=== PATIENT | male | born 1965 | race Caucasian/White ===

== ENCOUNTER 2022-06-19 14:21 | Outpatient (CLI) | payer BC, SELFPAY ==
--- NOTE | ~2022-06-19 | MR_ITS ---
EXAMINATION: MR brain/brain stem wo/w con DATE: 06/19/2022 15:01 INDICATION: Diplopia. Left trochlea nerve palsy. TECHNIQUE: Magnetic resonance imaging (MRI) of the brain and brainstem was performed without and with 18 mL MultiHance intravenous contrast. COMPARISON: Head CT 03/31/2018 FINDINGS: There is no intracranial hemorrhage, acute infarction, or abnormal intracranial mass lesion . The ventricles are normal in size. The orbits are normal. There is mild mucosal thickening in right maxillary sinus. The mastoid air cells are normal. IMPRESSION: 1. Normal brain. Reviewed, dictated and finalized at location A. IMPRESSION: 1. Normal brain.
== END 2022-06-19 14:22 ==
LOC: MICIMG 14:22
PROVIDERS: PCP Student in an Organized Health Care Education/Training Program; Visit Provider Student in an Organized Health Care Education/Training Program
DX: H53.2 Diplopia (principal); H49.12 Fourth [trochlear] nerve palsy, left eye
CPT/HCPCS: 70553; A9577

== ENCOUNTER 2024-11-03 09:25 | Outpatient (CLI) | payer BC, SELFPAY ==
--- OUTSIDE RECORDS SUMMARY | 2024-11-03 10:18 | XMS_ITS | Clinical Summary ---
Author Organization [facility] Address [facility] [place] [address] Care Team Providers Care Hand Stemmer Name Role Phone ToñitonurysDirk sanabria Primary Care Provider + Allergies No known active allergies Medications Glucose Blood test stripIndication s:Type 2 diabetes mellitus without complication, without long-term current use of insulin (CMS/HCC HHS/HCC) Check blood sugar once daily in AM when fasting 100 strip 11 4 Active Blood Glucose Monitoring Suppl (ONE TOUCH ULTRA 2) w/Device KitIndications: Type 2 diabetes mellitus without complication, without long-term current use of insulin (CMS/HCC HHS/HCC) Check blood sugar once daily in AM when fasting 1 kit 4 Active Lancets (ONETOUCH ULTRASOFT) lancetsIndicati ons:Type 2 diabetes mellitus without complication, without long-term current use of insulin (CMS/HCC HHS/HCC) Check blood sugar once daily in AM when fasting 1 each 11 4 Active atorvastatin (LIPITOR) 80 MG tabletIndicatio ns:Hyperlipidem ia associated with type 2 diabetes mellitus (CMS/HCC HHS/HCC) Take 1 tablet (80 mg total) by mouth nightly at bedtime. 90 tablet 3 5 Active atorvastatin (LIPITOR) 80 MG tabletIndicatio ns:Hyperlipidem ia associated with type 2 diabetes mellitus (CMS/HCC HHS/HCC) Take 1 tablet (80 mg total) by mouth nightly at bedtime. 90 tablet 3 4 10/15/19 25 Discontinu ed(Reorder ) Active Problems Problem Noted Date Diagnosed Date Type 2 diabetes mellitus wit hout complication, without long-term current use of insulin ([facility]/HCC [facility]) 03/23/2024 Elevated hemoglobin A1c 05/23/2020 Allergic rhinitis, unspecifi ed seasonality, unspecified trigger 05/23/2020 Hyperlipidemia GERD (gastroesophageal reflux disease) Resolved Problems Problem Noted Date Diagnosed Date Resolved Date Left trochlear nerve palsy 11/23/2022 0 11/08/2023 Encounters Date Type Department Care Team Description 10/15/2024 Telephone [facility] Family & Internal Medicine [address] [phone] Dirk Worthington, DO Refill Request 09/14/2024 Scan [facility] SRVCS Scanned, [facility] Image (SCAN) from Last 3 Months Immunizations Name Administration Dates Next Due Hepatitis A (Havrix 1440 El.U) 07/23/2019 Hepatitis B(Engerix B Adult) 01/19/2020,08/21/20 19,07/23/2019 Influenza Adult (Generic) 08/31/2022 MODERNA COVID-19 (12+) MRNA, LNP-S, PF, 100 MCG/ 0.5 ML DOSE 11/22/2020,10/25/2020 Tdap (Generic) 10/06/2022,02/08/2016 Family History Medical History Relation Comments COPD Father Cancer Father Heart Disease Father Diabetes Mother Heart Disease Mother Asthma Son Relation Status Comments Father Mother Son Social History Tobacco Use Types Packs/Day Years Used Date Smoking Tobacco: Never Smokeless Tobacco: Never Comments:na Alcohol Use Standard Drinks/Week Comments Yes 6.7 (1 standard drink = 0.6 oz p ure alcohol) Occasional PHQ-2 Answer Date Recorded Patient Health Questionnaire-2 Score 0 11/08/2023 Sex and Gender Information Value Date Recorded Sex Assigned at Not on file Legal Sex Male 3:53 PM INVOICE CONTROL CLERK Gender Identity Male 10/05/2021 8:43 AM INVOICE CONTROL CLERK Sexual Orientation Straight 12/01/2021 11 :48 AM INVOICE CONTROL CLERK Last Filed Vital Signs Vital Sign Reading Time Taken Comments Blood Pressure 104/68 07/06/2024 7:09 AM CDT Pulse 73 07/06/2024 7:09 AM CDT Temperature 36.7 C (98.1 F) 07/06/2024 7:09 AM CDT Respiratory Rate 16 07/06/2024 7:09 AM CDT Oxygen Saturation 97% 07/06/2024 7:09 AM CDT Inhaled Oxygen Concentration - - Weight 91.6 kg (202 lb) 07/06/2024 7:09 AM CDT Height 170.2 cm (5' 7 ) 07/06/2024 7:09 AM CDT Body Mass Index 31.64 07/06/2024 7:09 AM CDT Plan of Treatment Upcoming Encounters Date Type Department Care Team (Late st Contact Info) Description 01/04/2025 7:20 AM CDT Laboratory Only [facility] Family & Internal [address] [phone] Dirk Worthington, [address] [place] [id number] 01/11/2025 7:00 AM CDT Office Visit [facility] Family [facility] Internal [address] [phone] Dirk Worthington, DO [address] [place] [address] Health Maintenance Due Date Last Done Comments Kidney Health Evaluation 1966 Diabetes: Retinopathy Eye Exam 1984 Annual Physical 10/06/2019 10/06/2018 PHQ-2 (Physician [place]) 09/23/2024 11/08/2023 Lipid Panel 11/08/2024 11/08/2023, 0910/2021, 05/28/2020, Additional history exists PHQ-2 (Physician [place]) 11/08/2024 11/08/2023 Hemoglobin A1C 01/04/2025 07/06/2024, 0709/2023, 11/08/2023, Additional history exists Pneumococcal Vaccine: Pediatrics (0 to 5 Years) and At-Risk Patients (6 to 64 Years) (1 of 2 - PCV) 04/06/2025 Postponed from 1972 (Patient Refused) COVID-19 Vaccine (3 - season) 2025 11/22/2020, 10/25/2020 Postponed from 05/24/2024 (Patient Refused) Influenza Adult (#1) 2025 08/31/2022 Postpon ed from 06/23/2024 (Patient Refused) Zoster Vaccines (1 of 2) 10/24/2026 Pos tponed from 2016 (Awaiting Documentation) Colorectal Cancer Screening FIT-DNA (3 Years) 08/03/2027 08/03/2024 DTaP, Tdap and Td Vaccines (3 - Td or Tdap) 10/06/2032 10/06/2022, 02/08/2016 Hepatitis B Vaccines Completed 01/19/2020, 08/21/2019, 07/23/2019 Hepatitis C Completed 05/25/2022 Meningococcal B Vaccine Aged Out No l onger eligible based on patient's age to complete this topic Meningococcal Vaccine Aged Out No kateryna silas eligible based on patient's age to complete this topic RSV Immunizations Under 20 Months Aged Out No longer eligible based on patient's age to complete this topic Procedures Procedure Name Priority Date/Time Associated Diagnosis Comments IMAGE GENERIC 09/14/2024 COLOGUARD (EXACT SCIENCE) Routine 08/03/2024 9:36 AM INVOICE CONTROL CLERK Screening for malignant neoplasm of colon HEMOGLOBIN, GLYCOSYLATED Routine 07/06/2024 Type 2 diabetes mellitus without complication, without long-term current use of insulin ([facility]CC [facility]/HCC) LIPID PANEL Routine 11/08/2023 7:55 AM INVOICE CONTROL CLERK Annual physical exam Screening for lipid disorders Screening for endocrine, metabolic and immunity disorder Screening for prostate cancer HEPATITIS C ANTIBODY Routine 05/25/2022 1:51 PM CDT Screening for lipid disorders Screening for endocrine, metabolic and immunity disorder Screening for prostate cancer Need for hepatitis C screening test Annual physical exam from Last 3 Months or Most Recently Relevant to Health Maintenance Results * IMAGE GENERIC (09/14/2024) Anatomical Region Laterality Modality Other 09/14/2024 us [facility] Scanned SCANNING Final Resu lt * COLOGUARD (EXACT SCIENCE) (08/03/2024 9:36 AM INVOICE CONTROL CLERK) COLOGUARD RESULT Negative Negative [facility] [employer] (CLIA #:[id number]) Comment: NEGATIVE TEST RESULT. A negative Cologuard result indicates a low likelihood that a colorectal cancer (CRC) or advanced adenoma (adenomatous polyps with more advanced pre-malignant features) is present. The chance that a person with a negative Cologuard test has a colorectal cancer is less than 1 in 1500 (negative predictive value >99.9%) or has an advanced adenoma is less than 5.3% (negative predictive value 94.7%). These data are based on a prospective cross-sectional study of 10,000 individuals at average risk for colorectal cancer who were screened with both Cologuard and colonoscopy. (Elyssa Chaparro et al, N Engl J Med 2014;370(14):7432-3637) The normal value (reference range) for this assay is negative. COLOGUARD RE-SCREENING RECOMMENDATION: Periodic colorectal cancer screening is an important part of preventive healthcare for asymptomatic individuals at average risk for colorectal cancer. Following a negative Cologuard result, the [place] [employer] and U.S. Multi-Society Task Force screening guidelines recommend a Cologuard re-screening interval of 3 years. References: [place] [employer] Guideline for Colorectal Cancer Screening: https://www.cancer.org/cancer/ruala-zhpuzr-omepup/nvpivimqo-lanjpktco-kcmulvq/ac s-rec ommendations.html.; Romel MOREIRA, Ronny FRAZIER, Neil MillerK, Colorectal Cancer Screening: Recommendations for Physicians and Patients from the U.S. Multi-Society Task Force on Colorectal Cancer Screening , Am J Gastroenterology 2017; 112:7749-1259. TEST DESCRIPTION: Composite algorithmic analysis of stool DNA-biomarkers with hemoglobin immunoassay. Quantitative values of individual biomarkers are not reportable and are not associated with individual biomarker result reference ranges. Cologuard is intended for colorectal cancer screening of adults of either sex, 45 years or older, who are at average-risk for colorectal cancer (CRC). Cologuard has been approved for use by the U.S. FDA. The performance of Cologuard was established in a cross sectional study of average-risk adults aged 50-84. Cologuard performance in patients ages 45 to 49 years was estimated by sub-group analysis of near-age groups. Colonoscopies performed for a positive result may find as the most clinically significant lesion: colorectal cancer [4.0%], advanced adenoma (including sessile serrated polyps greater than or equal to 1cm diameter) [20%] or non- advanced adenoma [31%]; or no colorectal neoplasia [45%]. These estimates are derived from a prospective cross-sectional screening study of 10,000 individuals at average risk for colorectal cancer who were screened with both Cologuard and colonoscopy. (Elyssa Roberto. et al, N Engl J Med 2014;370(14):0715-3733.) Cologuard may produce a false negative or false positive result (no colorectal cancer or precancerous polyp present at colonoscopy follow up). A negative Cologuard test result does not guarantee the absence of CRC or advanced adenoma (pre-cancer). The current Cologuard screening interval is every 3 years. ([place] [employer] and U.S. Multi-Society Task Force). Cologuard performance data in a 10,000 patient pivotal study using colonoscopy as the reference method can be accessed at the following location: www.PsychSignal/results. Additional description of the Cologuard test process, warnings and precautions can be found at www.cologuard.com. STOOL STOOL SPECIMEN / Unknown 08/03/2024 9:36 AM INVOICE CONTROL CLERK 08/04/2024 9:52 AM INVOICE CONTROL CLERK us Dirk Worthington DO BODY FLUIDS AND STOOLS O RDERABLES Final Result [employer] ([employer] [facility]) [address] [place] [address], [employer] (CLIA #:[id number]) [address] [place] [address] * HEMOGLOBIN, GLYCOSYLATED (07/06/2024) HGB A1C 6.1 % [facility] 07/06/2024 Dirk Worthington DO LABORATORY Final Re sult Performing Organization Address City/[facility]/ZIP Co de Phone Number [facility] [address] [place] [address], [place] * LIPID PANEL (11/08/2023 7:55 AM INVOICE CONTROL CLERK) CHOLESTEROL 161 <200 MG/DL 11/08/2023 4:40 PM INVOICE CONTROL CLERK [facility] TRIGLYCERIDES 106 <150 MG/DL 11/08/2023 4:40 PM INVOICE CONTROL CLERK [facility] HDL 45 >40 MG/DL 11/08/2023 4:40 PM INVOICE CONTROL CLERK [facility] LDL-C 95 <100 MG/DL 11/08/2023 4:40 PM INVOICE CONTROL CLERK [facility] VLDL CALCULATION 21 5 - 28 MG/DL 11/08/2023 4:40 PM INVOICE CONTROL CLERK [facility] CHOL/HDL RATIO 3.6 0.0 - 4.0 11/08/2023 4:40 PM INVOICE CONTROL CLERK [facility] LDL/HDL 2.1 0.41 - 2.13 11/08/2023 4:40 PM INVOICE CONTROL CLERK [facility] NON HDL CHOLESTEROL 116 <140 MG/DL 11/08/2023 4:40 PM INVOICE CONTROL CLERK [facility] 11/08/2023 7:55 AM INVOICE CONTROL CLERK Dirk Worthington DO LABORATORY Final Re sult [facility] [address] [place] [address], [place] [phone] * HEPATITIS C AB ([facility] ONLY) (05/25/2022 1:51 PM CDT) HEPATITIS C AB NON-REACTI VE NON-REACT SANJEEV 05/29/2022 11:27 AM CDT [facility] Comment: ANTIBODIES TO HCV NOT DETECTED. DOES NOT EXCLUDE THE POSSIBILITY OF EXPOSURE TO HCV. 05/25/2022 1:51 PM CDT Dirk Worthington DO LABORATORY Final Re sult [facility] [address] [place] [address], [id number] from Last 3 Months or Most Recently Relevant to Health Maintenance Insurance [facility] Care Teams Hand Stemmer Relationship Specialty Start Date End Date Dirk Worthington DO [address] [place], [place] [id number] PCP - General FAMILY PRACTICE 09/25/18
--- OUTSIDE RECORDS SUMMARY | 2024-11-03 10:18 | XMS_ITS | Patient Health Summary ---
Author Organization [facility] Address [address] [place] [address] Care Team Providers Care Barnworker Groom Name Role Phone Unavailable Primary Care Provider Unavailabl e Note from [facility],non-owned Affiliates and Associated Physician Practices is amultiple site organization consisting of ambulatory clinics and hospital sitesin [place], [place] and [place]. This disclosure is being madepursuant to the Care Everywhere program and may not contain all information available regarding this patient. Last updated 18.[facility] Allergies No known active allergies Medications * Be aware that medications may not be up to date on this document. Alwaysverify current medications with the patient. * atorvastatin (LIPITOR) 10 MG tablet Take 10 mg by mouth at bedtime * Cetirizine HCl (ZYRTEC ALLERGY PO) * atorvastatin (LIPITOR) 80 MG tablet(Started 01/18/2020) * benzonatate (TESSALON) 200 MG capsule(Started 04/09/2021) Take 1 (one) capsule by mouth 3 times daily as needed for Cough Active Problems No known active problems Social History Tobacco Use Types Packs/Day Years Used Date Smoking Tobacco: Never Smokeless Tobacco: Never Alcohol Use Standard Drinks/Week Comments Never 0 (1 standard drink = 0.6 oz pur e alcohol) AUDIT-C Answer Date Recorded Q1: How often do you have a drink containing alc ohol? Never 12/18/2020 Average Number of Drinks Not on file 021 Frequency of Binge Drinking Not on file 11/22 Sex and Gender Information Value Date Recorded Sex Assigned at Not on file Gender Identity Not on file Sexual Orientation Not on file Last Filed Vital Signs Vital Sign Reading Time Taken Comments Blood Pressure 140/84 04/09/2021 11:20 AM CDT Pulse 64 04/09/2021 11:20 AM CDT Temperature 36.7 C (98 F) 04/09/2021 11:20 AM CDT Respiratory Rate 20 04/09/2021 11:20 AM CDT Oxygen Saturation 97% 04/09/2021 11:20 AM CDT Inhaled Oxygen Concentration - - Weight 95.3 kg (210 lb) 04/09/2021 11:20 AM CDT Height 170.2 cm (5' 7 ) 04/09/2021 11:20 AM CDT Body Mass Index 32.89 04/09/2021 11:20 AM CDT
--- OUTSIDE RECORDS SUMMARY | 2024-11-03 10:18 | XMS_ITS | Clinical Summary ---
Author Organization [facility] Address [address] [place] [address] Phone Care Team Providers Care Clinical Safety Manager Name Role Phone Toñitostephanie Dirk Zach FIERRO Primary Care Provider + Allergies No known active allergies Medications atorvastatin (LIPITOR) 10 mg tablet Take 20 mg by mouth daily at bedtime. Active Active Problems Problem Noted Date Diagnosed Date Left trochlear nerve palsy 11/23/2022 Binocular vision disorder with diplopia 11/24/19 23 Family History Medical History Relation Name Comments Glaucoma Father Macular Degen Father Diabetes Mother Strabismus Neg Hx Relation Name Status Comments Father Mother Social History Tobacco Use Types Packs/Day Years Used Date Smoking Tobacco: Never Smokeless Tobacco: Never Tobacco Cessation:Counseling Given: Not Answered Alcohol Use Standard Drinks/Week Comments Yes 1 (1 standard drink = 0.6 oz pur e alcohol) Feeling Safe Answer Date Recorded Are you in a relationship wi th someone who hurts you emotionally and/or physically? Unable to obtain 05/31/2023 Sex and Gender Information Value Date Recorded Sex Assigned at Not on file Legal Sex Male 11:09 PM CDT Gender Identity Not on file Sexual Orientation Not on file Last Filed Vital Signs Vital Sign Reading Time Taken Comments Blood Pressure 116/74 05/31/2023 1:28 PM CDT Pulse 62 05/31/2023 1:28 PM CDT Temperature 36.1 C (97 F) 05/31/2023 1:28 PM CDT Respiratory Rate 18 05/31/2023 1:28 PM CDT Oxygen Saturation 96% 05/31/2023 1:28 PM CDT Inhaled Oxygen Concentration - - Weight 95.2 kg (209 lb 12.8 oz) 05/31/2023 8:52 AM CDT Height 170.2 cm (5' 7 ) 05/31/2023 8:52 AM CDT Body Mass Index 32.86 05/31/2023 8:52 AM CDT Plan of Treatment Health Maintenance Due Date Last Done Comments HEPATITIS B VACCINES (1 of 3 - 19+ 3-dose series) 1985 01/19/2020, 08/21/2019, 07/23/2019 COLORECTAL SCREENING 2011 Colorectal Cancer Screening 2011 FIT-DNA Q 3 years 2011 FIT/FOBT Q 1 year 2011 Flex Sig/CT Colonography Q 5 years 2011 ZOSTER VACCINE (1 of 2) 2016 INFLUENZA VACCINE (#1) 2024 COVID-19 Vaccine (2023-2 5 season) 2024 11/22/2020, 10/25/2020 DTAP/TDAP/TD VACCINES (2 - T d or Tdap) 02/07/2026 02/08/2016 PNEUMOCOCCAL VACCINE 0-64 YEARS Aged Out No longer eligible b ased on patient's age to complete this topic Insurance [employer] BLUE PREFERRED Advance Directives For more information, please contact: [phone] * Full Code (Latest Code Status on File) Date Activated Date Inactivated Comments 05/31/2023 9:00 AM 05/31/2023 3:49 PM Care Teams Clinical Safety Manager Relationship Specialty Start Date End Date Dirk Worthington [address] [place] [phone] PCP - General Family Practice 11/15/22
--- OUTSIDE RECORDS SUMMARY | 2024-11-03 10:18 | XMS_ITS | Referral Summary ---
Author Organization [facility] Address [address] [place] [address] Care Team Providers Care Compliance Engineer Name Role Phone Unavailable Primary Care Provider Unavailabl e Source Comments [facility],non-owned Affiliates and Associated Physician Practices is amultiple site organization consisting of ambulatory clinics and hospital sitesin [place], [place], [place] and [place]. This disclosure is being madepursuant to the Care Everywhere program and may not contain all information available regarding this patient. Last updated 18.[facility] [employer] Allergies No known active allergies Medications * Be aware that medications may not be up to date on this document. Alwaysverify current medications with the patient. Medication Sig Dispensed Refills Start Date End Date Status atorvastatin (LIPITOR) 10 MG tablet Take 10 mg by mouth at bedtime Active Cetirizine HCl (ZYRTEC ALLERGY PO) Activ e atorvastatin (LIPITOR) 80 MG tablet 01/18/2020 Active benzonatate (TESSALON) 200 MG capsule Take 1 (one) capsule by mouth 3 times daily as needed for Cough 30 capsule 04/09/2021 Active Active Problems No known active problems Social [...] Mass Index 32.89 04/09/2021 11:20 AM CDT Plan of Treatment Not on file
--- OUTSIDE RECORDS SUMMARY | 2024-11-03 10:18 | XMS_ITS | Clinical Summary ---
Author Organization [facility] Address [address] [facility] [place] [address] Care Team Providers Care Syrup Mixer Helper Name Role Phone Unavailable Primary Care Provider Unavailabl e Source Comments [facility],non-owned Affiliates and Associated Physician Practices is amultiple site organization consisting of ambulatory clinics and hospital sitesin [place], [place], [place] and [place]. This disclosure is being madepursuant to the Care Everywhere program and may not contain all information available regarding this patient. Last updated 18.[facility] Allergies No known active allergies Medications * [...] 04/09/2021 11:20 AM CDT Plan of Treatment Health Maintenance Due Date Last Done Comments COLOGUARD (AGES 45-75) - COL ON CA SCREENING 1966 COLON MONITORING 1966 COLONOSCOPY - COLON CA SCREENING 1966 CT COLONOGRAPHY - COLON CA SCREENING 1966 Colorectal Cancer Screening 1966 FIT - COLON CA SCREENING 1966 FLEX SIG - COLON CA SCREENING 1966 HIV SCREENING 1981 HEPATITIS C SCREENING 09/26/1984 DTAP/TDAP/TD VACCINES (1 - Tdap) 1985 HEPATITIS B VACCINE (1 of 3 - 19+ 3-dose series) 1985 PNEUMOCOCCAL VACCINE 50+ (1 of 1 - PCV) 2016 ZOSTER VACCINE (1 of 2) 2016 SCREENING FOR DIABETES 12/18/2020 COVID-19 VACCINE (3 - 2023-2 5 season) 2024 11/22/2020, 10/25/2020 INFLUENZA VACCINE (#1) 2024 DEPRESSION SCREENING 09/23/2024 HIB VACCINE Aged Out No longer eligi ble based on patient's age to complete this topic HPV VACCINE Aged Out No longer eligi ble based on patient's age to complete this topic MENINGOCOCCAL (Group B) VACCINE Aged Out No longer eligible b ased on patient's age to complete this topic MENINGOCOCCAL VACCINE Aged Out No kateryna silas eligible based on patient's age to complete this topic PNEUMOCOCCAL VACCINE Aged Out No long er eligible based on patient's age to complete this topic
--- OUTSIDE RECORDS SUMMARY | 2024-11-03 10:18 | XMS_ITS | Data Portability ---
Author Organization [employer], [facility] Address [address] [address] Assessment No assessment recorded. Plan of Treatment Reminders Order Date Submit Date Provider Last Modified By Organization Details Last Modified Time Details Appointments None recorded. Lab PSA, serum or plasma 2019 ORITZ Not available 0 17:37:30 CBC w/ auto diff 2019 ORTIZ Not available 0 17:37:29 vitamin D, 25-hydroxy, total, serum 2019 020 ORTIZ Not available 0 17:37:30 testosteron e, free, serum 2019 Not available 0 11:03:02 testosteron e, total, serum 2019 020 Not available 0 11:03:02 Referral None recorded. Procedures None recorded. Surgeries None recorded. Imaging US, lower extremity, nonvascular 2019 020 Not available 0 11:32:05 XR, knee 2019 020 Not available 0 11:03:02 Medication Orders cephalexin 500 mg capsule 2019 020 Not available 0 11:03:02 diazepam 10 mg tablet 2019 020 Not available 0 11:03:02 Patient TargetsNo targets recorded. Patient Instructions Encounter Date Encounter Id Patient Instructions Last Modified By Organization Details Last Modified Time 04/13/2020 [id number] knee arthritis: care instructions Not available 04/13/2020 11:32:05 knee pain or injury: care instructions Not available 04/13/2020 11:03:02 After review of radiographic and examination findings, we discussed treatment options available. These included corticosteroid injection,bracing, observation, surgical referral, physical therapy, pain management, and/or stem cell treatment. The patient is definitely interested in non-surgical alternatives. If they choose to undergo stem cell biologic treatment, it is understood that it is considered investigational and off label use of the product by FDA, that it is not a covered benefit by insurance, and that there is no guarantee of symptom improvement. We reviewed the stem cell treatment and depth. Information packet was given to and reviewed with the patient. All questions were answered related to the procedure, post procedure expectations, and cost associated with treatment. We also discussed that sometimes more than one biologic treatment is required to attain desired efficacy. If opting to undergo biologic treatment, an order was given for laboratory studies to be completed. They will call our office if they desire to schedule an appointment for treatment or review any of the other treatment options discussed. Patient will also RTC or call for any worsening, questions or concerns prn. Not available 04/13/2020 11:30:45 Reason for Referral None Reported. Results Created Date Observation Date Name Description Value Unit Range Abnormal Flag Note LastModifiedBy Organization Detail LastModifiedTime 04/30/2005/04/2020 CBC w/ auto diff white blood cell count 6.0 thous and/u L 3.8-10 .8 normal Not Available [employer] [facility] [address] [place], [address], 05/04/2020 17:37:29 04/30/2005/04/2020 CBC w/ auto diff red blood cell count 5.14 ayo on/uL 4.20-5 .80 normal Not Available [employer] [facility] [address] [place], [address], 05/04/2020 17:37:29 04/30/2005/04/2020 CBC w/ auto diff hemoglobin 15.6 g/dL 13.2-1 7.1 normal Not Available [address], [address], 05/04/2020 17:37:29 04/30/2005/04/2020 CBC w/ auto diff hematocrit 46.6 % 38.5-5 0.0 normal Not Available [address], [address], 05/04/2020 17:37:29 04/30/2005/04/2020 CBC w/ auto diff MCV 90.7 fL 80.0-1 00.0 normal Not Available [address], [address], 05/04/2020 17:37:29 04/30/2005/04/2020 CBC w/ auto diff MCH 30.4 pg 27.0-3 3.0 normal Not Available [address], [address], 05/04/2020 17:37:29 04/30/2005/04/2020 CBC w/ auto diff MCHC 33.5 g/dL 32.0-3 6.0 normal Not Available [address], [address], 05/04/2020 17:37:29 04/30/2005/04/2020 CBC w/ auto diff RDW 12.1 % 11.0-1 5.0 normal Not Available [address], [address], 05/04/2020 17:37:29 04/30/2005/04/2020 CBC w/ auto diff platelet count 248 thous and/u L 140-40 0 normal Not Available [address], [address], 05/04/2020 17:37:29 04/30/2005/04/2020 CBC w/ auto diff MPV 11.3 fL 7.5-12 .5 normal Not Available [address], [address], 05/04/2020 17:37:29 04/30/20 20 05/04/2020 CBC w/ auto diff absolute neutrophils 3492 cells /uL 1500-7 800 normal Not Available [address], [address], 05/04/2020 17:37:29 04/30/20 20 05/04/2020 CBC w/ auto diff absolute lymphocytes 1764 cells /uL 850-39 00 normal Not Available [address], [address], 05/04/2020 17:37:29 04/30/20 20 05/04/2020 CBC w/ auto diff absolute monocytes 564 cells /uL 200-95 0 normal Not Available [address], [address], 05/04/2020 17:37:29 04/30/20 20 05/04/2020 CBC w/ auto diff absolute eosinophils 132 cells /uL 15-500 normal Not Available [address], [address], 05/04/2020 17:37:29 04/30/20 20 05/04/2020 CBC w/ auto diff absolute basophils 48 cells /uL 0-200 normal Not Available [address], [address], 05/04/2020 17:37:29 04/30/20 20 05/04/2020 CBC w/ auto diff neutrophils 58.2 % normal Not Available [address], [address], 05/04/2020 17:37:29 04/30/20 20 05/04/2020 CBC w/ auto diff lymphocytes 29.4 % normal Not Available [address] [place], [address], 05/04/2020 17:37:29 04/30/20 20 05/04/2020 CBC w/ auto diff monocytes 9.4 % normal Not Available [facility] [address] [place], [address], 05/04/2020 17:37:29 04/30/20 20 05/04/2020 CBC w/ auto diff eosinophils 2.2 % normal Not Available [facility] [place] [address] [place], [address], 05/04/2020 17:37:29 04/30/20 20 05/04/2020 CBC w/ auto diff basophils 0.8 % normal Not Available [facility] [place] [address] [place], [address], 05/04/2020 17:37:29 04/30/20 20 05/04/2020 PSA, serum or plasm a PSA, total 1.0 NG/mL < or = 4.0 normal The total PSA value from this assay syste m is stand ardiz ed again st the WHO stand jennifer. The test resul t will be appro ximat mark 20% lower when asher red to the equim olar- stand ardiz ed total PSA ([facility] man Coul[facility] er). Asher rison of seria l PSA resul ts shoul d be inter prete d with this fact in mind. This test was perfo rmed using the [employer] chemi lumin escen t metho d. Value s obtai deborah from diffe rent assay metho ds canno t be used inter dela cruz eably . PSA level s, regar dless of value , shoul d not be inter prete d as absol jayjay evide nce of the prese nce or absen ce of disea se. Not Available [facility] [address] [place], [address], 05/04/2020 17:37:30 04/30/20 20 05/04/2020 vitam in D, 25-hy droxy , total , serum vitamin D,25-oh,tota l,ia 30 NG/mL 30-100 normal Vitam in D Statu s 25-OH Vitam in D: Defic iency : <20 ng/mL Insuf ficie ncy: 20 - 29 ng/mL Optim al: > or = 30 ng/mL For 25-OH Vitam in D testi ng on patie nts on D2-aponte pplem entat ion and patie nts for whom quant itati on of D2 and D3 fract ions is requi red, the [facility] Assur eD(TM ) 25-OH VIT D, (D2,D 3), LC/MS /MS is recom rosa d: order code 62202 (antonia ents >2yrs ). See Note 1 Note 1 For addit ional derickr valdez beltran refer to http: //[facility] luis antonio.Que stDia gnost ics.c om/fa q/FAQ 199 (This link is being provi ded for infor bijal nal/ educa meri l purpo ses only. ) Not Available [employer] [place] [address] [place], [address], 05/04/2020 17:37:30 04/30/20 20 05/04/2020 testo stero ne, free + total , serum testosterone , total, MS 466 NG/dL 250-11 00 (Note ) For addit ional infor valdez beltran refer to http: //[facility] salmon.que stdia gnost ics.c om/fa q/Tot Edna Rojo [facility] (This link is being provi ded for infor matio nal/e ducat ional purpo ses only. ) This test was scot [facility]istina and its carie tical perfo rmanc e pedro pablo cteri stics have been deter mined by [employer]. It has not been clear ed or appro hyacinth by the FDA. This assay has been valid ated pursu ant to the CLIA regul ation s and is used for clini faby purpo ses. Not Available [employer] [facility] [address] [place], [address], 05/04/2020 17:37:31 04/30/20 20 05/04/2020 testo stero ne, free + total , serum testosterone , free 73.5 pg/mL 35.0-1 55.0 (Note ) This test was scot [facility] and its carie tical perfo rmanc e pedro pablo cteri stics have been deter mined by [employer]. It has not been clear ed or appro hyacinth by the FDA. This assay has been valid ated pursu ant to the CLIA regul ation s and is used for clini faby purpo ses. [facility] med fusio n [address] [facility] [address] [place] [address] [phone] Cristela maddox MD Your reque st to have a [employer] copy faxed has been darrin obrien ed. Queue d to: [phone] Not Available [employer] [facility] [address] [address] , [place], [address], 05/04/2020 17:37:31 Result Notes None recorded. Problems No Known Problems Medical Equipment None Reported. Allergies No known drug allergies Medications Name Sig Start Date Stop Date Status Note LastModified by Organization Details LastModified Time hydrocodone 5 mg-acetaminop hen 325 mg tablet TK 1 T PO Q 6 H FOR 7 DAYS active Not Available Not Available No t Available Lipitor 80 mg tablet Take 1 tablet every day by oral route. active Not Available Not Available No t Available cephalexin 500 mg capsule TK 4 CS PO ONE HOUR PRIOR TO PROCEDURE. ONE TIME DOSE active Not Available Not Available No t Available ergocalcifero l (vitamin D2) 1,250 mcg (50,000 unit) capsule TK ONE C PO Q WEEK active Not Available Not Available No t Available diazepam 10 mg tablet TK 1 T PO 30 MINUTES PRIOR TO APPT PRN AND REPEAT DIRECTED BY PHYSICIAN active Not Available Not Available No t Available fluticasone propionate 50 mcg/actuation nasal spray,suspens ion INT 1 SPRAY IEN QD active Not Available Not Available No t Available cholecalcifer ol (vitamin D3) 1,250 mcg (50,000 unit) capsule Take 1 capsule every week by oral route. 2019 active Not Available Not Available Not Avai lable Wal-[employer]yr (cetirizine) 10 mg tablet TK 1 T PO QD active Not Available Not Available No t Available Vitals Date Recorded Body height Body mass index (BMI) Body weight Provider Name and Address Organization Details Last Updated DateTime 04/13/2020 170.18 cm 33.7 kg/m2 65560.36 g Nevaeh Mccracken [employer] 04/13/2020 10:35:48 Social History Question Answer Notes LastModified by Organizat ion Details LastModified Time Tobacco Smoking Status Never Smoker Nevaeh ryder [facility] 04/13/2020 10:37:40 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 Mental Status None recorded. Family History Relationship Description Onset Age of this Age Resolved Age Notes LastModified by Organization Details LastModified Time Father Heart disease [email or web address] Not available 2019 10:36:57 Father Hypercholest erolemia [email or web address] Not available 2019 10:37:09 Mother Heart disease [email or web address] Not available 2019 10:36:57 Mother Diabetes mellitus Not available 2019 10:37:24 Medical History No medical history recorded. Past Encounters Encounter ID Performer Location Encounter Start Date Encounter Closed Date Diagnosis/Indication Diagnosis SNOMED-CT Code Diagnosis ICD10 Code Diagnosis Note [id number] Chandu Andrewsadán [facility] [address] [facility] ,[address] [place] [address] 04/13/2020 10:17:33 04/14/2020 16:26:04 Knee pain 77576126 M25.561 M25.562 Bilateral knee pain, left greater than right, consistent with: Left knee grade 3 lateral, two medial and moderate patellofem oral osteoarthr osis; truncation of the lateral meniscus post arthroscop ic surgery in 1999. derangemen t lateral greater than medial meniscus. No significan t axial malalignme nt or Instabilit y. Right knee grade 2 medial compartmen t with moderate patellofem oral osteoarthr osis; medial greater than lateral meniscal derangemen t without extrusion; history of [place] latter's without tibial tubercle tenderness or patellar tendon tenderness . Antibiotic prophylaxis indicated 492904252 Z78.9 Anxiety 41982902 F41.9 Screening procedure 2012 5006 Z13.9 R53.83 M89.9 M94.9 Z12.5 Z01.812 E55.9 Osteoarthr itis of knee 285254272 M17.0 Derangemen t of meniscus 452903702 M23.306 M23.307 Health Concerns Section Related Observation LastModified by Organization Detai ls LastModified Time None Recorded Concern Status LastModified by Organization Details LastModified Time None Recorded Advance Directives Directive None Recorded Payers Encounter Date Sequence Insurance Name Policy Number Policy Steve Covered Member ID Steve Member ID Guarantor Name 04/13/2020 1 [place] [id number] Niles Vilma Hidalgo [id number] Niles Hidalgo Notes Date Note Type Note Provider Name and Address Organization Details Recorded Time 04/13/2020 text/html Alonso is pleasant 54-year-old right side dominant male who presents our clinic today for evaluation of his chronic knee issues. He did sustain a meniscus tear to the left knee in 1987, and he eventually had subsequent knee arthroscopy for lateral meniscectomy in 2001. He did well postoperatively but has had some recurrence symptoms special over the last couple weeks. He is very active in playing softball and indoor soccer. 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 This pain is been getting progressively worse over last couple weeks and at its worse is a levels 8/10. He is mostly over the lateral greater than medial aspect of the right knee and medial of the left. He is starting to get some instability with the left knee and periodic giving way sensation. He describes it as a constant ache with sharp stabbing pains with pivoting and hyperflexion. He also notices some swelling especially towards the end of the workday or after playing ball. anti-inflammatory medications have helped to mitigate his pain. Post exercise rice modalities are also beneficial temporarily. He is looking for nonsurgical alternatives to treat his knee pain / arthritis. He was told that he had moderate arthritis when he saw the orthopedist many years ago. specifically, he is here today to discuss potential for stem-cell biologic treatment for his knees. PENG Spears - [facility] [employer] [facility], [facility] 05/09/2020 16:18:45
--- NOTE | 2024-11-03 10:45 | NEURO_ITS ---
Impression: # Complains of numbness in hands. Non-diabetic. # Bilateral moderate Carpal Tunnel Syndrome. # No ulnar neuropathy. # Abnormal needle/EMG exam of APB bilaterally. Nerve Conduction Studies Anti Sensory Summary Table ?Stim Site NR Peak (ms) P-T Amp (?V) Site1 Site2 Delta-P (ms) Dist (cm) Troy (m/s) Left Median Anti Sensory (2-3nd Digit) Wrist ? 4.4 17.8 Wrist 2-3nd Digit 4.4 14.0 32 Wrist ? 5.0 16.0 Wrist 2-3nd Digit 4.4 14.0 32 Right Median Anti Sensory (2-3nd Digit) Wrist ? 5.3 11.9 Wrist 2-3nd Digit 5.3 14.0 26 Wrist ? 5.8 13.2 Wrist 2-3nd Digit 5.3 14.0 26 Left Radial Anti Sensory (Base 1st Digit) Wrist ? 1.9 32.9 Wrist Base 1st Digit 1.9 0.0 Right Radial Anti Sensory (Base 1st Digit) Wrist ? 2.1 15.6 Wrist Base 1st Digit 2.1 0.0 Left Ulnar Anti Sensory (5th Digit) Wrist ? 2.5 39.7 Wrist 5th Digit 2.5 14.0 56 Right Ulnar Anti Sensory (5th Digit) Wrist ? 2.5 29.3 Wrist 5th Digit 2.5 14.0 56 Motor Summary Table ?Stim Site NR Onset (ms) O-P Amp (mV) Site1 Site2 Delta-0 (ms) Dist (cm) Troy (m/s) Left Median Motor (Abd Poll Brev) Wrist ? 5.5 4.2 Elbow Wrist 4.3 27.0 63 Elbow ? 9.8 5.6 Right Median Motor (Abd Poll Brev) Wrist ? 5.8 1.9 Elbow Wrist 4.7 29.0 62 Elbow ? 10.5 3.4 Left Ulnar Motor (Abd Dig Minimi) Wrist ? 2.6 5.8 A Elbow Wrist 5.0 30.0 60 A Elbow ? 7.6 4.2 Right Ulnar Motor (Abd Dig Minimi) Wrist ? 2.7 8.8 A Elbow Wrist 5.2 31.0 60 A Elbow ? 7.9 7.7 F Wave Studies ?NR F-Lat (ms) L-R F-Lat (ms) Left Median (Mrkrs) (Abd Poll Brev) ? 31.02 0.90 Right Median (Mrkrs) (Abd Poll Brev) ? 31.92 0.90 Left Ulnar (Mrkrs) (Abd Dig Min) ? 27.68 0.27 Right Ulnar (Mrkrs) (Abd Dig Min) ? 27.95 0.27 EMG ?Side Muscle Nerve Root Ins Act Fibs Amp Dur Recrt Comment Right 1stDorInt Ulnar C8-T1 Nml Nml Nml Nml Nml Right Ext Indicis Radial (Post Int) C7-8 Nml Nml Nml Nml Nml Right Ext Digitorum Radial (Post Int) C7-8 Nml Nml Nml Nml Nml Right BrachioRad Radial C5-6 Nml Nml Nml Nml Nml Right PronatorTeres Median C6-7 Nml Nml Nml Nml Nml Right Abd Poll Brev Median C8-T1 Nml Nml Nml >12ms +2 Right ABD Dig Min Ulnar C8-T1 Nml Nml Nml Nml Nml Left 1stDorInt Ulnar C8-T1 Nml Nml Nml Nml Nml Left Ext Indicis Radial (Post Int) C7-8 Nml Nml Nml Nml Nml Left Ext Digitorum Radial (Post Int) C7-8 Nml Nml Nml Nml Nml Left BrachioRad Radial C5-6 Nml Nml Nml Nml Nml Left PronatorTeres Median C6-7 Nml Nml Nml Nml Nml Left Abd Poll Brev Median C8-T1 Nml Nml Nml >12ms +2 Left ABD Dig Min Ulnar C8-T1 Nml Nml Nml Nml Nml MTDD
== END 2024-11-03 09:26 | disposition home or self-care (01) ==
LOC: ANHNEURO 09:27
PROVIDERS: PCP Student in an Organized Health Care Education/Training Program; Visit Provider Nurse Practitioner Family
DX: R20.0 Anesthesia of skin (principal); R20.2 Paresthesia of skin; G56.03 Carpal tunnel syndrome, bilateral upper limbs
CPT/HCPCS: 95886; 95911

== ENCOUNTER 2025-02-27 07:52 | Outpatient (CLI) | payer BC, SELFPAY ==
--- NOTE | 2025-02-27 07:57 | ECG_ITS ---
Test Date: 2025-02-27 08:06:00 Measurements Intervals Ivel Rate: 78 P: 46 [place]: 195 QRS: 30 QRSD: 109 T: 41 QT: 361 QTc: 413 Interpretive Statements SINUS RHYTHM CONSIDER INFERIOR INFARCT, AGE INDETERMINATE ABNORMAL ECG No previous ECG available for comparison Electronically Signed On 02-27-2025 08:16:58 CDT by Robinson Mckeon D.O.
--- OUTSIDE RECORDS SUMMARY | 2025-02-27 07:57 | XMS_ITS | CONTINUITY OF CARE DOCUMENT ---
Author Name johanna spencer Address Unknown Organization [facility] Address [id number] [place] [address] [address] [place] [address] Phone [phone] Care Team Providers Care Project Production Engineer Name Role Phone XANDER WALLACE MD Unavailable [phone] INSURANCE PROVIDERS Payer name Policy type / Coverage type [place] red republican ID [facility] [employer] insurance company [id number]
--- OUTSIDE RECORDS SUMMARY | 2025-02-27 07:57 | XMS_ITS | Clinical Summary ---
Author Organization [facility] Address [address] [place] [address] Phone Care Team Providers Care Telephone Clerk Name Role Phone ToñitostephanieDirk Zach FIERRO Primary Care Provider + Allergies [...] 8:52 AM CDT Height 170.2 cm (5' 7) 05/31/2023 8:52 AM CDT Body Mass Index [...] 2016 INFLUENZA VACCINE (#1) 2024 COVID-19 Vaccine ( season) 05/24/202410/2020, 10/25/2020 DTAP/TDAP/TD VACCINES (2 - T d or Tdap) 02/07/2026 02/08/2016 Insurance [employer]UE P[employer]ED Advance Directives For more information, please contact: [phone] * Full Code (Latest Code Status on File) Date Activated Date Inactivated Comments 05/31/2023 9:00 AM 05/31/2023 3:49 PM Care Teams Telephone Clerk Relationship Specialty Start Date End Date Dirk Worthington DO [address] [place] [id number] PCP - General Family Practice 11/15/22
--- OUTSIDE RECORDS SUMMARY | 2025-02-27 07:57 | XMS_ITS | Continuity of Care Document ---
Author Organization [facility] Address [address] [place] [address] Phone Care Team Providers Care Domestic Travel Consultant Name Role Phone Cherry Kim PT Unavailable Unavailable Procedures Procedure Date Therapeutic Activities Therapeutic Exercise Neuromuscular Re-Ed Manual Therapy Therapeutic Activities Manual Therapy Therapeutic Exercise Neuromuscular Re-Ed Neuromuscular Re-Ed Therapeutic Exercise Manual Therapy Therapeutic Activities Therapeutic Exercise Neuromuscular Re-Ed Manual Therapy Therapeutic Activities Neuromuscular Re-Ed Therapeutic Activities Therapeutic Exercise Manual Therapy Therapeutic Activities Therapeutic Exercise Neuromuscular Re-Ed Manual Therapy Neuromuscular Re-Ed Therapeutic Activities Therapeutic Exercise Manual Therapy Therapeutic Activities Therapeutic Exercise PT Evaluation Low Complexity Manual Therapy Advance Directives Directive Yes / No Effective Date File Name No Information Encounters Encounter Description Practice Location Reason(s) For Visit Diagnoses Date Provider Providers Copied on Encounter [facility], [address], [place], [place], [id number], [place] tel:[phone] [place] No Information Jun- 0 Threlkeld Cherry. . Referring Provider: Meera Mejia, [address] [place] [address] [address], [place], [address]. tel:[phone] [facility] [address] [address], [place], [place], [id number], tel:[phone] [place] No Information Oct-2 0-202 0 Threlkeld Cherry. . Referring Provider: Meera Mejia, [address] [place] [address] [address], [place], [address]. tel:[phone] [facility] [address] [place] [address], [place], [id number], [place] tel:[phone] [place] No Information Jun-1 3-202 0 Threlkeld Cherry. . Referring Provider: Meera Mejia, [address] [place] [address] [address], [place], [address]. tel:[phone] [facility] [address] [address], [place], [place], [id number], [place] tel:[phone] [place] No Information Oct-0 8-202 0 Makler Luke. . Referring Provider: Meera Mejia, [address] [place] [address] [address], [place], [address]. tel:[phone] [facility] [address] [address], [place], [place], [id number], [place] tel:[phone] [place] No Information Oct-0 1-202 0 Threlkeld Chrery. . Referring Provider: Meera Mejia, [address] [place] [address] [address], [place], [address]. tel:[phone] [facility] [address], [place], [place], [id number], tel:[phone] Tyler No Information May-2 9- 0 Threlkeld Cherry. . Referring Provider: Meera Mejia, [address] [place] [address] [address], [place], [address]. tel:[phone] [facility], [address], [place], [place], [id number], tel:[phone] [place] No Information Sep-2 0 Denita Vivas. . Referring Provider: Meera Mejia, [address], [place], [address]. tel:[phone] [facility] [address], [place], [place], [id number], [place] tel:[phone] [place] No Information Sep-2 0 Judy Carey. . Referring Provider: Meera Mejia, [address], [facility] [place], [address]. tel:[phone] Family History Family Member Type Diagnosis Age At Onset No Information Payers Payer name Insurance type Covered alliance party ID Ale serrano(s) [facility] [id number] Social History Type Description Quantity Date Captured Comments Sex Male Smoking Status No Information Chief Complaint And Reason For Visit No Information Reason For Referral Reason For Referral No Information History Of Present Illness Encounter Date Complaint History Of Prese nt Illness No Information Functional Status Date Functional Assessmen t No Information Instructions Date Instruction Eldon Lastr zuri Giving encouragement to exercise Related to Overweight Assessments Type Assessment Date No Information Patient Care Teams Name Effective Dates (start - stop) Status Members No Information
--- OUTSIDE RECORDS SUMMARY | 2025-02-27 07:57 | XMS_ITS | Clinical Summary ---
Author Organization [facility] Address [address] [place] [address] Care Team Providers Care Pocket And Pulley Machine Operator Name Role Phone Unavailable Primary Care Provider Unavailabl e Source Comments [facility] [email or web address],non-owned Affiliates and Associated Physician Practices is amultiple site organization consisting of ambulatory clinics and hospital sitesin [place], [place], [place] and [place]. This disclosure is being madepursuant to the Care Everywhere program and may not contain all information available regarding this patient. Last updated 18.[facility] [email or web address] Allergies No known active allergies Medications * Be aware that medications may not be up to date on this document. Alwaysverify current medications with the patient. 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 Gender Identity Not on file Sexual Orientation [...] 11:20 AM CDT Height 170.2 cm (5' 7) 04/09/2021 11:20 AM CDT Body Mass Index [...] (1 of 2) 2016 SCREENING FOR DIABETES 06/13/2023 06/13/2020 COVID-19 VACCINE (3 - 2023-2 5 season) 2024 11/22/2020, 10/25/2020 DEPRESSION SCREENING 09/23/2024 INFLUENZA VACCINE (Season Ended) 2025 HIB VACCINE Aged Out No longer eligi ble based on patient's age to complete this topic HPV VACCINE Aged Out No longer eligi ble based on patient's age to complete this topic MENINGOCOCCAL (Group B) VACCINE SHARED DECISION-MAKING Aged Out No longer eligible based on patient's age to complete this topic MENINGOCOCCAL GROUPS A/C/Y/W VACCINE Aged Out No longer eligible b ased on patient's age to complete this topic Insurance CHRIS
--- OUTSIDE RECORDS SUMMARY | 2025-02-27 07:58 | XMS_ITS | Data Portability ---
Author Organization [employer], [facility] Address [address] [address] Assessment No assessment recorded. Plan of Treatment Reminders Order Date Submit Date Provider Last Modified By Organization Details Last Modified Time Details Appointments None recorded. Lab PSA, serum or plasma 2019 ORTIZ Not available 0 17:37:30 CBC w/ auto [...] By Organization Details Last Modified Time 04/13/2020 [id number] knee arthritis: care instructions Not available 04/13/2020 [...] and/u L 3.8-10 .8 normal Not Available [employer] [facility] [address] [place], [address], 05/04/2020 17:37:29 04/30/2005/04/2020 CBC w/ auto diff red blood cell count 5.14 ayo on/uL 4.20-5 .80 normal Not Available [employer] [facility] [address] [place], [address], 05/04/2020 17:37:29 04/30/2005/04/2020 CBC w/ auto diff hemoglobin 15.6 g/dL 13.2-1 7.1 normal Not Available [address], [address], 05/04/2020 17:37:29 04/30/2005/04/2020 CBC w/ auto diff hematocrit 46.6 % 38.5-5 0.0 normal Not Available [address], [address], 05/04/2020 17:37:29 04/30/2005/04/2020 CBC w/ auto diff MCV 90.7 fL 80.0-1 00.0 normal Not Available [address], [address], 05/04/2020 17:37:29 04/30/2005/04/2020 CBC w/ auto diff MCH 30.4 pg 27.0-3 3.0 normal Not Available [address], [address], 05/04/2020 17:37:29 04/30/2005/04/2020 CBC w/ auto diff MCHC 33.5 g/dL 32.0-3 6.0 normal Not Available [address], [address], 05/04/2020 17:37:29 04/30/2005/04/2020 CBC w/ auto diff RDW 12.1 % 11.0-1 5.0 normal Not Available [address], [address], 05/04/2020 17:37:29 04/30/2005/04/2020 CBC w/ auto diff platelet count 248 thous and/u L 140-40 0 normal Not Available [address], [address], 05/04/2020 17:37:29 04/30/2005/04/2020 CBC w/ auto diff MPV 11.3 fL 7.5-12 .5 normal Not Available [address], [address], 05/04/2020 17:37:29 04/30/20 20 05/04/2020 CBC w/ auto diff absolute neutrophils 3492 cells /uL 1500-7 800 normal Not Available [address], [address], 05/04/2020 17:37:29 04/30/20 20 05/04/2020 CBC w/ auto diff absolute lymphocytes 1764 cells /uL 850-39 00 normal Not Available [address], [address], 05/04/2020 17:37:29 04/30/20 20 05/04/2020 CBC w/ auto diff absolute monocytes 564 cells /uL 200-95 0 normal Not Available [address], [address], 05/04/2020 17:37:29 04/30/20 20 05/04/2020 CBC w/ auto diff absolute eosinophils 132 cells /uL 15-500 normal Not Available [address], [address], 05/04/2020 17:37:29 04/30/20 20 05/04/2020 CBC w/ auto diff absolute basophils 48 cells /uL 0-200 normal Not Available [address], [address], 05/04/2020 17:37:29 04/30/20 20 05/04/2020 CBC w/ auto diff neutrophils 58.2 % normal Not Available [address], [address], 05/04/2020 17:37:29 04/30/20 20 05/04/2020 CBC w/ auto diff lymphocytes 29.4 % normal Not Available [address] [place], [address], 05/04/2020 17:37:29 04/30/20 20 05/04/2020 CBC w/ auto diff monocytes 9.4 % normal Not Available [facility] [address] [place], [address], 05/04/2020 17:37:29 04/30/20 20 05/04/2020 CBC w/ auto diff eosinophils 2.2 % normal Not Available [facility] [address] [address] [place], [address], 05/04/2020 17:37:29 04/30/20 20 05/04/2020 CBC w/ auto diff basophils 0.8 % normal Not Available [facility] [address] [address] [place], [address], 05/04/2020 17:37:29 04/30/20 20 05/04/2020 PSA, serum [...] This test was perfo rmed using the [employer] chemi lumin escen t metho d. Value s obtai deborah from diffe rent assay metho ds canno t be used inter dela cruz eably . PSA level s, regar dless of value , shoul d not be inter prete d as absol jayjay evide nce of the prese nce or absen ce of disea se. Not Available [facility] [address] [place], [address], 05/04/2020 17:37:30 04/30/20 20 05/04/2020 vitam in [...] /MS is recom rosa d: order code [id number] (antonia ents >2yrs ). See Note 1 Note 1 For addit ional derickr valdez beltran refer to http: //[facility] luis antonio.Que stDia gnost ics.c om/fa q/FAQ 199 (This link is being provi ded for infor bijal nal/ educa meri l purpo ses only. ) Not Available [employer] [address] [address] [place], [address], 05/04/2020 17:37:30 04/30/20 20 05/04/2020 testo stero ne, free + total , serum testosterone , total, MS 466 NG/dL 250-11 00 (Note ) For addit ional infor valdez beltran refer to http: //[facility] salmon.que stdia gnost ics.c om/fa q/Tot Edna Rojo [facility] (This link is being provi ded for infor matio nal/e ducat ional purpo ses only. ) This test was scot cristina and its carie tical perfo rmanc e pedro pablo cteri stics have been deter mined by [employer]. It has not been clear ed or appro hyacinth by the FDA. This assay has been valid ated pursu ant to the CLIA regul ation s and is used for clini faby purpo ses. Not Available [employer] [facility] [address] [place], [address], 05/04/2020 17:37:31 04/30/20 20 05/04/2020 testo stero ne, free + total , serum testosterone , free 73.5 pg/mL 35.0-1 55.0 (Note ) This test was scot cristina and its carie tical perfo rmanc e pedro pablo cteri stics have been deter mined by [employer]. It has not been clear ed or appro hyacinth by the FDA. This assay has been valid ated pursu ant to the CLIA regul ation s and is used for clini faby purpo ses. MDF med fusio n [address] [place] [address] [phone] Cristela maddox MD Your reque st to have a [employer] copy faxed has been darrin obrien ed. Queue d to: [phone] Not Available [employer] [facility] [address] , [place], [address], 05/04/2020 17:37:31 Result Notes None recorded. 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 Family History Relationship Description Onset Age of this Age Resolved Age Notes LastModified by Organization Details LastModified Time Father Heart disease [email or web address] Not available 2019 10:36:57 Father Hypercholest erolemia Not available 2019 10:37:09 Mother Heart disease Not available 2019 10:36:57 Mother Diabetes mellitus Not available 2019 10:37:24 Medical History No medical history recorded. Past Encounters Encounter ID Performer Location Encounter Start Date Encounter Closed Date Diagnosis/Indication Diagnosis SNOMED-CT Code Diagnosis ICD10 Code Diagnosis Note [id number] Meera Mejia MD [facility] [address] [facility] [address] [place] [address] 04/13/2020 10:17:33 04/14/2020 16:26:04 Knee pain 87186489 M25.561 M25.562 Bilateral knee pain, left greater [...] meniscal derangemen t without extrusion; history of [place] latter's without tibial tubercle tenderness or patellar tendon tenderness . Antibiotic prophylaxis indicated 249182284 Z78.9 Anxiety 91315113 F41.9 Screening procedure 2012 5006 Z13.9 R53.83 M89.9 M94.9 Z12.5 Z01.812 E55.9 Osteoarthr itis of knee 746362280 M17.0 Derangemen t of meniscus 659313042 M23.306 M23.307 Health Concerns Section Related Observation LastModified by Organization Detai ls LastModified Time None Recorded Concern Status LastModified by Organization Details LastModified Time None Recorded Advance Directives Directive None Recorded Payers Encounter Date Sequence Insurance Name Policy Number Policy Steve Covered Member ID Steve Member ID Guarantor Name 04/13/2020 1 MIRNA (PPO) [id number] Niles Esparza Rocky [id number] Niles Hidalgo Notes Date Note Type [...] soccer. 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 This pain is been getting progressively worse [...] treatment for his knees. PENG Spears - [facility], [facility] 05/09/2020 16:18:45
== END 2025-02-27 07:53 | disposition home or self-care (01) ==
LOC: ANHLAB 07:56
PROVIDERS: PCP Student in an Organized Health Care Education/Training Program; Visit Provider Anesthesiology
DX: R94.31 Abnormal electrocardiogram [ECG] [EKG] (principal); E78.5 Hyperlipidemia, unspecified
CPT/HCPCS: 93005

== ENCOUNTER 2025-03-04 03:54 | Day surgery (SDC) | payer BC, SELFPAY ==
[2025-02-25 11:18] VITALS: BMI 33.0
--- NOTE | 2025-02-25 11:24 | PC.NURSE ---
Report to the Outpatient Waiting Room, entrance under the green pavilion located off [facility], at time _0730_ on date _[id number]_. Planned Procedure Time: _0930_.? Time changes happen often and if your time is changed the preop area will call you the afternoon before. - You and your visitor will be asked to self-screen and do not enter if you have any COVID symptoms. Please call surgeon if you need to reschedule. - A mask is optional within the hospital at this time. Patients may have clear liquids (water, carbonated beverages, clear teas, apple juice) until 3 hours prior to surgery with a maximum of 20 ounces. - No food from midnight until time of surgery and no smoking, or chewing tobacco (or any form of nicotine). No chewing gum, candy or mints. Take only the following medications with a SIP of water on the morning of surgery: __None DO NOT STOP ANY OF YOUR OTHER PRESCRIPTION MEDICATIONS PRIOR TO SURGERY EXCEPT THE FOLLOWING Hold all vitamins and supplements for 3 days per anesthesiologist. Medications to discontinue per physician Date to take last dose Please no make-up, nail kazakh, hairspray, perfume, deodorant, or body powder the day of surgery.? No jewelry (including any body piercings) or valuables the day of surgery, leave them at home.? Please take a shower or bath the night before, or the morning of, surgery with an antibacterial soap.? Wear comfortable, loose fitting clothing.? - Jewelry must be removed prior to entering the operating room.? Rings and piercings that are not removed may be cut off. - The hospital will not accept responsibility for valuables.? - Please leave all valuables, including medications, at home the day of surgery. If you are going home after surgery, a licensed mail truck driver must drive you home.? - NO public transportation without another adult if you receive anesthesia. - We recommend that an adult stay with you for 24 hours following discharge. - We also recommend that you do not drive, make important decision, drink alcoholic beverages, or take any drugs that were not prescribed by your health care provider for at least 24 hours after your discharge time. Follow any additional instructions given to you from your surgeon. Telephone instructions given to __Greg__and asked if any additional questions and then verbalized understanding. Patient advised to call surgeon office or pre surgery nurse liaison [phone] if any additional questions.
--- NOTE | 2025-03-03 11:46 | PM.IMHP ---
H&P: HPI History of Present Illness Date/Time: 03/03/25 11:46 Chief Complaint: Right hand numbness and pain. Narrative: 59-year-old man with increasing bilateral wrist and hand numbness and pain. Symptoms at times dependent on wrist position and activity. Other times without association wakes up at night. Nerve conduction study noted moderate carpal tunnel syndrome bilaterally. Has failed conservative treatment bracing, stretching and nerve gliding therapy techniques. No improvement with medication and activity modification. Presents for treatment. Review of Systems Constitutional: Constitutional: Denies fever(s) Eyes: Eyes: Denies blurry vision ENT: Reports Normal hearing present Cardiovascular: Cardiovascular: Denies chest pain and Denies dyspnea Respiratory: Respiratory: Denies dyspnea and Denies wheezing Gastrointestinal: Gastrointestinal: Denies abdominal pain Genitourinary: Genitourinary: Denies urinary urgency Musculoskeletal: Musculoskeletal: Reports as per HPI and Denies numbness Integumentary/Breasts: Skin/Breast: Denies changing lesions and Denies sores Neurologic: Reports Normal hearing present, Denies behavioral changes, Denies confusion, Denies numbness and Denies convulsions Psychiatric: Psychiatric: Denies behavioral changes, Denies confusion and Denies hallucinations Endocrine: Endocrine: Denies heat intolerance Hematologic/Lymphatic: Hematologic/Lymphatic: Denies easy bleeding Allergic/Immunologic: Allergic/Immunologic: Denies wheezing PMFSH Past Medical History Medical History Carpal tunnel syndrome of left wrist Carpal tunnel syndrome of right wrist Numbness and tingling of upper extremity Degenerative joint disease of knee Left knee pain Surgical History Surgical History H/O eye surgery Family History Family History Unknown Heart disease Diabetes mellitus Hyperlipidemia Social History Social History Smoking status: Never smoker Alcohol intake: current Drinks per week: 1 Substance use: never Living arrangements: with family Occupation/Education: occupation 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 [employer] Spiritual care concerns: No Meds Home Medications and Allergies Home Medications ?Medication ?Instructions ?Recorded ?Confirmed ?Type atorvastatin 80 mg tablet 80 mg PO QPM 02/25/25 02/25/25 History Allergies Allergy/AdvReac Type Severity Reaction Status Date / Time No Known Allergies Allergy Verified 02/25/25 11:17 Exam Const: General: cooperative, healthy appearing, no acute distress, well developed and alert; No confusion Orientation/consciousness: No confusion HENMT: Head: normal to inspection, normocephalic and atraumatic Eyes: Conjunctivae: conjunctivae normal Sclera: sclerae normal Neck: Neck: supple and nontender Chest: Chest palpation & inspection: normal inspection of the chest Resp: Effort & Inspection: normal respiratory effort and no audible wheezes Cardio: Rate: regular rate Rhythm: regular rhythm : General: Yes deferred Skin: General skin exam: no rashes or lesions noted Neuro: General: No confusion Motor exam (neuro): Normal motor muscle tone present throughout Sensory Exam: Sensory deficit (Neuro) (decreased sensation to light touch thumb, index, middle and radial ring kwasi) and Upper extremity sensory exam abnormal Deep tendon reflexes (DTR's): Right triceps reflex intensity grade: 2+, Left triceps reflex intensity grade: 2+, Rt Biceps (C5, C6): 2+, Left biceps reflex intensity grade: 2+, Right brachioradialis reflex intensity grade: 2+ and Left brachioradialis reflex intensity grade: 2+ Extrem: General: capillary refill normal Right upper extremity: normal to inspection, full ROM, normal capillary refill and wrist normal vascular exam ( ), radial pulse present and normal Russell's test; Tinel's positive ( positive median nerve compression test. Positive Tinel's) and Phalen's positive Left upper extremity: normal to inspection and wrist normal vascular exam, radial pulse present and normal Russell's test; Tinel's positive ( positive median nerve compression test. Positive Tinel's) and Phalen's positive Right lower extremity: normal to inspection and hip/thigh Details: normal to inspection Left lower extremity: hip/thigh Details: tenderness, swelling and abnormal ROM and ankle (no calf tenderness) Psych: Affect: normal affect Assessment and Plan Assessment and plan (1) Carpal tunnel syndrome of right wrist: Code(s): G56.01 - Carpal tunnel syndrome, right upper limb Status: Acute Assessment and Plan: 59-year-old male with bilateral wrist pain and hand numbness and tingling status post upper extremity EMG nerve conduction study. EMG nerve conduction study confirms moderate bilateral carpal tunnel syndrome. Discussed condition, nature, etiology and course of natural history. Conservative and operative treatment options reviewed as well as the risks benefits of each. Patient would like to proceed with surgical intervention at this time. Risks of surgery including but not limited to neurovascular damage, wound complications, blood clot, pulmonary embolus, stroke, myocardial infarction, anesthetic risks up to and including were reviewed. Continued pain and possible dysfunction were explained. Incomplete resolution of neurologic symptoms and continued problems with median nerve discussed. No guarantees were offered. The patient understands and wishes to proceed. Surgical screening performed. The patient denies a history of depression or anxiety that would inhibit them from participating in PT/OT. The patient denies current cancer treatment, recent hospitalization, COVID-19 exposure or complications of previous COVID-19, dental infections, SALEEM, diabetes and current smoking habits. Plan: Right Carpal tunnel release (2) Carpal tunnel syndrome of left wrist: Code(s): G56.02 - Carpal tunnel syndrome, left upper limb Status: Acute Assessment and Plan: would like to proceed with the more symptomatic right side. Upon recovery of the right carpal tunnel would then like to proceed with left side.
[2025-03-04] VITALS (9 sets, daily range): BP systolic 97–127; BP diastolic 57–79; PULSE 61–91; RESP 11–18; TEMP 36.2–36.4; O2SAT 96–99; BMI 32.1
--- OUTSIDE RECORDS SUMMARY | 2025-03-04 03:57 | XMS_ITS | Clinical Summary ---
Author Organization [facility] Address [address] [place] [address] Phone Care Team Providers Care Home Demonstrator Name Role Phone ToñitostephanieDirk Zach FIERRO Primary [...] Advance Directives For more information, please contact: [phone] * Full Code (Latest Code Status on File) Date Activated Date Inactivated Comments 05/31/2023 9:00 AM 05/31/2023 3:49 PM Care Teams Home Demonstrator Relationship Specialty Start Date End Date Dirk Worthington DO [address] [place] [phone] PCP - General Family Practice 11/15/22
--- OUTSIDE RECORDS SUMMARY | 2025-03-04 03:57 | XMS_ITS | Clinical Summary ---
Author Organization [facility] Address [address] [place] [address] Care Team Providers Care Individual Pension Consultant Name Role Phone Unavailable Primary Care Provider Unavailabl e Source Comments [facility] [employer],non-owned Affiliates and Associated Physician Practices is amultiple site organization consisting of ambulatory clinics and hospital sitesin [place], [place], [place] and [place]. This disclosure is being madepursuant to the Care Everywhere program and may not contain all information available regarding this patient. 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
--- NOTE | 2025-03-04 07:06 | WPDHPUPDATE1 ---
History and Physical Update Update Date/Time: 03/04/25 07:06 History and Physical has been reviewed, including an updated exam of the patient. There are NO changes in the patient's condition. Risks, benefits, and alternatives have been discussed and questions answered. Patient agrees to proceed with procedure.
[2025-03-04] MEDS: LACTATED RINGERS 1,000 ML 30 ML IV CONT (08:00)
[2025-03-04] MEDS: KETOROLAC 15 MG/ML VIAL (*BKC) IV PUSH (08:00)
[2025-03-04] MEDS: ACETAMINOPHEN 500 MG TABLET 1000 MG PO (08:00)
--- NOTE | 2025-03-04 08:26 | P.PNAN_ITS ---
Anes - Initial Pre Proc Eval Procedure: Operation Date: 03/04/25 09:30 Proposed Procedures p Right Carpal Tunnel Release - Hernesto Mario MD Date/Time: 03/04/25 08:26 Surgeon: Hernesto Mario MD Pre Op Diagnosis: Right Carpal Tunnel Syndrome Patient Data Age: 59 Gender: M Height: 1.7 m Weight: 93.2 kg Last Vital Signs Temp 36.4 C L 03/04/25 07:30 Pulse 91 03/04/25 07:30 Resp 14 03/04/25 07:30 BP 127/79 03/04/25 07:30 Pulse Ox 98 03/04/25 07:30 Allergies Allergy/AdvReac Type Severity Reaction Status Date / Time No Known Allergies Allergy Verified 03/04/25 08:02 Home Medications ?Medication ?Instructions ?Recorded ?Confirmed ?Type atorvastatin 80 mg tablet 80 mg PO QPM 02/25/25 02/25/25 History Patient hx anesthesia problems: none Family hx anesthesia problems: none Results Review: All pre-operative results and documents have been reviewed as part of the pre- operative evaluation. 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 Informed Consent: The patient's anesthetic plan and its attendant risks and benefits were discussed with the patient/family/POA. Questions were solicited and answers provided to the satisfaction of the patient/family/POA.
[2025-03-04] MEDS: ceFAZolin 2 GM/D5W 50 ML 2 GM/50 ML BAG IVPB (09:21)
--- NOTE | 2025-03-04 09:27 | P.OP_ITS ---
Procedure Note - Detailed Date of Procedure 03/04/25 Pre-op Diagnosis Right Carpal Tunnel Syndrome Post-op Diagnosis Same Procedure Performed Right carpal tunnel release. Surgeon Hernesto Mario MD Chief [employer] expanded duty dental assistant Anesthesia General Indications The patient has history, exam findings, and electrodiagnostic findings consistent with carpal tunnel syndrome. Conservative treatment with bracing/ splinting, activity modifications, medication, ergonomics, injections has failed. Symptoms are daily and affect ability to use hand. The patient desires operative treatment. Nerve study shows bilateral carpal tunnel syndrome. He is left-hand dominant. He has elected to proceed with the right side 1st. Description of Procedure After informed consent was given, the operative extremity was marked in the preoperative holding area. Intravenous antibiotics were given. The patient was taken to the operating room and underwent general anesthetic by the anesthesia team. A time-out was performed confirming patient, procedure, and operative site. Local infiltrate at the carpal tunnel was done with 0.5% marcaine. Prepping and draping was done using chloraprep skin solution with usual surgical sterile technique. Anatomic landmarks marked on skin. Hand was exsanguinated and arm tourniquet inflated to 225mmHg. Incision was made with #15 blade knife in skin crease on volar palm. Hemostasis was achieved with electrocautery. Careful dissection was carried down to the transverse carpal ligament. Retractors were placed. Ligament overlying median nerve was incised in line with skin incision using [place] blade. Proximal and distal release was done with metzenbaum scissors under direct visualization. Mosquito clamp was placed deep to ligament to protect nerve during release. The nerve was inspected and noted to be intact with mild flattening. Tendons had good excursion. The tourniquet was then released and pressure held. Bleeding points were coagulated with bipolar cautery. The wound was thoroughly irrigated with antibiotic solution. The skin was closed with 4-0 nylon interrupted suture. A sterile dressing was applied. Good capillary refill in the fingers and thumb was noted. The patient was transported to the recovery room in stable condition. All sponge, needle, instrument counts were correct at the end of the case. Estimated Blood Loss 2 Tourniquet Time Total Tourniquet Time: 8 Drains No Packing No Pathology None sent Complications None Condition Stable Disposition PACU [facility] Billing Surgery - Charge Forward: Surgery Billing ([id number])
[2025-03-04] MEDS: BUPIVACAINE/EPINEPHRINE 0.5% 30 ML VIAL 10 ML INFILTRATE (09:52)
== END 2025-03-04 11:42 | disposition home or self-care (01) ==
PROVIDERS: PCP Student in an Organized Health Care Education/Training Program; Visit Provider Orthopaedic Surgery
PROC: (CPT 64721; principal; 2025-03-04 09:30)
DX: G56.01 Carpal tunnel syndrome, right upper limb (principal); M17.10 Unilateral primary osteoarthritis, unspecified knee; E66.9 Obesity, unspecified; Z68.32 Body mass index [BMI] 32.0-32.9, adult; Z98.890 Other specified postprocedural states; Z82.49 Family history of ischemic heart disease and other diseases of the circulatory system
CPT/HCPCS: 64721; A9270; J0690; J1100; J1885; J2003; J2250; J2405; J2704; J3010; J7120

== ENCOUNTER 2025-04-08 01:36 | Day surgery (SDC) | payer BC, SELFPAY ==
[2025-04-01 13:49] VITALS: BMI 32.8
--- NOTE | 2025-04-01 13:54 | PC.NURSE ---
Report to the Outpatient Waiting Room, entrance under the green pavilion located off [facility], at time _1000__ on date _04/08/25_. Planned Procedure Time: _1200__.? Time changes happen often and if your time is changed the preop area will call you the afternoon before. - You and your visitor will be asked to self-screen and do not enter if you have any COVID symptoms. Please call surgeon if you need to reschedule. - A mask is optional within the hospital at this time. Patients may have clear liquids (water, carbonated beverages, clear teas, apple juice) until 3 hours prior to surgery with a maximum of 20 ounces. - No food from midnight until time of surgery and no smoking, or chewing tobacco (or any form of nicotine). No chewing gum, candy or mints. - Infants may have breast milk until 4 hours before surgery, infant formula 6 hours prior to surgery. - Children will be allowed to drink immediately following surgery.? If applicable, please bring a bottle or sippy cup to assist with drinking. Juice, water, soda, and popsicles are readily available.? For infants on formula, please bring formula the day of surgery.? Pacifiers are allowed. Take only the following medications with a SIP of water on the morning of surgery: ___NONE DO NOT STOP ANY OF YOUR OTHER PRESCRIPTION MEDICATIONS PRIOR TO SURGERY EXCEPT THE FOLLOWING Hold all vitamins and supplements for 3 days per anesthesiologist. Medications to discontinue per physician Date to take last dose Please no make-up, nail tristanian, hairspray, perfume, deodorant, or body powder the day of surgery.? No jewelry (including any body piercings) or valuables the day of surgery, leave them at home.? Please take a shower or bath the night before, or the morning of, surgery with an antibacterial soap.? Wear comfortable, loose fitting clothing.? Children are encouraged to wear pajamas. - Jewelry must be removed prior to entering the operating room.? Rings and piercings that are not removed may be cut off. - The hospital will not accept responsibility for valuables.? - Please leave all valuables, including medications, at home the day of surgery. If you are going home after surgery, a licensed refrigerated national truck driver must drive you home.? - NO public transportation without another adult if you receive anesthesia. - We recommend that an adult stay with you for 24 hours following discharge. - We also recommend that you do not drive, make important decision, drink alcoholic beverages, or take any drugs that were not prescribed by your health care provider for at least 24 hours after your discharge time. For Pediatric surgeries, we recommend two adults accompany the child home. Follow any additional instructions given to you from your surgeon. Telephone instructions given to PATIENT_and asked if any additional questions and then verbalized understanding. Patient advised to call surgeon office or pre surgery nurse liaison [phone] if any additional questions.
[2025-04-08] VITALS (8 sets, daily range): BP systolic 98–129; BP diastolic 62–82; PULSE 54–69; RESP 12–20; TEMP 36.8–36.9; O2SAT 96–99
--- OUTSIDE RECORDS SUMMARY | 2025-04-08 02:05 | XMS_ITS | Continuity of Care Document ---
Author Name [facility] Organization [facility] Care Team Providers Care Cement Crusher Operator Name Role Phone [facility] Unavailable Unavailable Plan of Care List of future care activities from Department of Veterans Affairs facilities. Additional future care activities may be listed in the Assessment and Plan section. Date/Time Care Activity Care Activity Detail Facili ty 04/16/2025 AMBULATORY - MEDICINE AMBULATORY - MEDICI [facility]
--- OUTSIDE RECORDS SUMMARY | 2025-04-08 02:05 | XMS_ITS | Clinical Summary ---
Author Organization [facility] Address [address] [place] [address] Phone Care Team Providers Care Student Driving Instructor Name Role Phone ToñitonurystyshawnkendraDirk Zach FIERRO Primary Care Provider + Allergies [...] drink = 0.6 oz pur e alcohol) Sex and Gender Information Value Date Recorded [...] 2011 ZOSTER VACCINE (1 of 2) 2016 COVID-19 Vaccine ( season) 05/24/202410/2020, 10/25/2020 INFLUENZA VACCINE (#1) 2025 DTAP/TDAP/TD VACCINES (2 - T d or Tdap) 02/07/2026 02/08/[address] [place] [address] [place] [address] BLUE PREFERRED Advance Directives For more information, please contact: [phone] * Full Code (Latest Code Status on File) Date Activated Date Inactivated Comments 05/31/2023 9:00 AM 05/31/2023 3:49 PM Care Teams Student Driving Instructor Relationship Specialty Start Date End Date Dirk Worthington DO [address] [place] [address] PCP - General Family Practice 11/15/22
--- OUTSIDE RECORDS SUMMARY | 2025-04-08 02:05 | XMS_ITS | Data Portability ---
Author Organization [facility] Address [address] [address] Assessment No assessment recorded. Plan of Treatment Reminders Order Date Submit Date Provider Last Modified By Organization Details Last Modified Time Details Appointments None recorded. Lab PSA, serum or plasma 2019 ORTIZ Not available 0 17:37:30 CBC w/ auto diff 2019 020 ORTIZ Not available 0 17:37:29 vitamin D, 25-hydroxy, total, serum 2019 020 ORTIZ Not available 0 17:37:30 testosteron e, free, serum 2019 Not available 0 11:03:02 testosteron e, total, serum 2019 020 Not available 0 11:03:02 Referral None recorded. Procedures None recorded. Surgeries None recorded. Imaging US, lower extremity, nonvascular 2019 020 Not available 0 11:32:05 XR, knee 2019 Not available 0 11:03:02 Medication Orders cephalexin 500 mg capsule 2019 Not available 0 11:03:02 diazepam 10 mg tablet 2019 020 Not available 0 11:03:02 Patient TargetsNo targets recorded. Patient Instructions Encounter Date Encounter Id Patient Instructions Last Modified By Organization Details Last Modified Time 04/13/2020 [id number] knee arthritis: care instructions Not available 04/13/2020 [...] and/u L 3.8-10 .8 normal Not Available [facility] [address] [place], [address], 05/04/2020 17:37:29 04/30/2005/04/2020 CBC w/ auto diff red blood cell count 5.14 ayo on/uL 4.20-5 .80 normal Not Available [facility] [address] [place], [address], 05/04/2020 17:37:29 04/30/2005/04/2020 CBC w/ auto diff hemoglobin 15.6 g/dL 13.2-1 7.1 normal Not Available [address], [address], 05/04/2020 17:37:29 04/30/20 20 05/04/2020 CBC w/ auto diff hematocrit 46.6 % 38.5-5 0.0 normal Not Available [address], [address], 05/04/2020 17:37:29 04/30/20 20 05/04/2020 CBC w/ auto diff MCV 90.7 fL 80.0-1 00.0 normal Not Available [address], [address], 05/04/2020 17:37:29 04/30/2005/04/2020 CBC w/ auto diff MCH 30.4 pg 27.0-3 3.0 normal Not Available [address], [address], 05/04/2020 17:37:29 04/30/2005/04/2020 CBC w/ auto diff MCHC 33.5 g/dL 32.0-3 6.0 normal Not Available [address], [address], 05/04/2020 17:37:29 04/30/2005/04/2020 CBC w/ auto diff RDW 12.1 % 11.0-1 5.0 normal Not Available [address], [address], 05/04/2020 17:37:29 04/30/2005/04/2020 CBC w/ auto diff platelet count 248 thous and/u L 140-40 0 normal Not Available [address], [address], 05/04/2020 17:37:29 04/30/20 20 05/04/2020 CBC w/ auto diff MPV 11.3 fL 7.5-12 .5 normal Not Available [address], [address], 05/04/2020 17:37:29 04/30/20 20 05/04/2020 CBC w/ auto diff absolute neutrophils 3492 cells /uL 1500-7 800 normal Not Available [address], [address], 05/04/2020 17:37:29 04/30/20 20 05/04/2020 CBC w/ auto diff absolute lymphocytes 1764 cells /uL 850-39 00 normal Not Available [address], [address], 05/04/2020 17:37:29 04/30/20 20 05/04/2020 CBC w/ auto diff absolute monocytes 564 cells /uL 200-95 0 normal Not Available [address], [address], 05/04/2020 17:37:29 04/30/20 20 05/04/2020 CBC w/ auto diff absolute eosinophils 132 cells /uL 15-500 normal Not Available [address], [address], 05/04/2020 17:37:29 04/30/20 20 05/04/2020 CBC w/ auto diff absolute basophils 48 cells /uL 0-200 normal Not Available [address], [address], 05/04/2020 17:37:29 04/30/20 20 05/04/2020 CBC w/ auto diff neutrophils 58.2 % normal Not Available [address], [address], 05/04/2020 17:37:29 04/30/20 20 05/04/2020 CBC w/ auto diff lymphocytes 29.4 % normal Not Available [address] [place], [address], 05/04/2020 17:37:29 04/30/20 20 05/04/2020 CBC w/ auto diff monocytes 9.4 % normal Not Available [facility] [address] [place], [address], 05/04/2020 17:37:29 04/30/20 20 05/04/2020 CBC w/ auto diff eosinophils 2.2 % normal Not Available [facility] [address] [address] [place], [address], 05/04/2020 17:37:29 04/30/20 20 05/04/2020 CBC w/ auto diff basophils 0.8 % normal Not Available [address] [address] [place], [address], 05/04/2020 17:37:29 04/30/20 20 05/04/2020 PSA, serum [...] This test was perfo rmed using the [facility] chemi lumin escen t metho d. Value s obtai deborah from diffe rent assay metho ds canno t be used inter dela cruz eably . PSA level s, regar dless of value , shoul d not be inter prete d as absol koi evide nce of the prese nce or absen ce of disea se. Not Available [address] [address] [place], [address], 05/04/2020 17:37:30 04/30/20 20 05/04/2020 vitam in [...] /MS is recom rosa d: order code 68275 (antonia ents >2yrs ). See Note 1 Note 1 For addit ional derickr valdez beltran e refer to http: //[facility] salmon.Que stDia gnost ics.c om/fa q/FAQ 199 (This link is being provi ded for infor bijal nal/ educa meri l purpo ses only. ) Not Available [facility] [address] [address] [place], [address], 05/04/2020 17:37:30 04/30/20 20 05/04/2020 testo stero ne, free + total , serum testosterone , total, MS 466 NG/dL 250-11 00 (Note ) For addit ional infor valdez beltran e refer to http: //[facility] salmon.que stdia gnost ics.c om/fa q/Tot alTes guillaume Rojo [facility] UP[facility]MS (This link is being provi ded for infor matio nal/e ducat ional purpo ses only. ) This test was scot cristina and its carie tical perfo rmanc e pedro pablo cteri stics have been deter mined by [employer]. It has not been clear ed or appro hyacinth by the FDA. This assay has been valid ated pursu ant to the CLIA regul ation s and is used for clini faby purpo ses. Not Available [facility] [address] [place], [address], 05/04/2020 17:37:31 04/30/20 20 05/04/2020 testo stero ne, free + total , serum testosterone , free 73.5 pg/mL 35.0-1 55.0 (Note ) This test was scot cristina and its carie tical perfo rmanc e pedro pablo cteri stics have been deter mined by [employer]. It has not been clear ed or appro hyacinth by the FDA. This assay has been valid ated pursu ant to the CLIA regul ation s and is used for clini faby purpo ses. MDF med fusio n [address] [facility] [address] [facility] [address] [phone] Cristela maddox MD Your reque st to have a MobiTX copy faxed has been darrin joség ed. Queue d to: [phone] Not Available [facility] [address] , [place], [address], 05/04/2020 17:37:31 Result Notes None recorded. 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 Family History Relationship Description Onset Age of this Age Resolved Age Notes LastModified by Organization Details LastModified Time Father Heart disease Not available 2019 10:36:57 Father Hypercholest erolemia [email or web address] Not available 2019 10:37:09 Mother Heart disease Not available 2019 10:36:57 Mother Diabetes mellitus [email or web address] Not available 2019 10:37:24 Medical History No medical history recorded. Past Encounters Encounter ID Performer Location Encounter Start Date Encounter Closed Date Diagnosis/Indication Diagnosis SNOMED-CT Code Diagnosis ICD10 Code Diagnosis Note [id number] Meera Mejia MD [facility] [address] [facility] [address] [place] [address] 04/13/2020 10:17:33 04/14/2020 16:26:04 Knee pain 21422528 M25.561 M25.562 Bilateral knee pain, left greater [...] meniscal derangemen t without extrusion; history of Aranza-Hesham latter's without tibial tubercle tenderness or patellar tendon tenderness . Antibiotic prophylaxis indicated 399650960 Z78.9 Anxiety 04534689 F41.9 Screening procedure 2012 5006 Z13.9 R53.83 M89.9 M94.9 Z12.5 Z01.812 E55.9 Osteoarthr itis of knee 142920071 M17.0 Derangemen t of meniscus 791170540 M23.306 M23.307 Health Concerns Section Related Observation LastModified by Organization Detai ls LastModified Time None Recorded Concern Status LastModified by Organization Details LastModified Time None Recorded Advance Directives Directive None Recorded Payers Insurance Date Sequence Insurance Name Policy Number Policy Steve Covered Member ID Steve Member ID Guarantor Name 08/03/2020 1 NANCY-MIRIAN (PPO) [id number] Niles Esparza Rocky [id number] Niles Hidalgo Notes Date Note Type [...] 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 This pain is been getting progressively worse [...] for stem-cell biologic treatment for his knees. Chandu ryder, [facility], [facility] 05/09/2020 16:18:45
--- OUTSIDE RECORDS SUMMARY | 2025-04-08 02:06 | XMS_ITS | Continuity of Care Document ---
Author Organization [facility] Address [address] [place] [address] Phone Care Team Providers Care Modeler Name Role Phone Cherry Kim PT Unavailable Unavailable Procedures Procedure Date Therapeutic Activities Neuromuscular Re-Ed Therapeutic Exercise Manual Therapy Therapeutic Activities Neuromuscular Re-Ed Therapeutic Exercise Manual Therapy Therapeutic Activities Neuromuscular Re-Ed Therapeutic Exercise Manual Therapy Therapeutic Activities Neuromuscular Re-Ed Therapeutic Exercise Manual Therapy Therapeutic Activities Neuromuscular Re-Ed Therapeutic Exercise Manual Therapy Therapeutic Activities Neuromuscular Re-Ed Therapeutic Exercise Manual Therapy Therapeutic Activities Neuromuscular Re-Ed Therapeutic Exercise Manual Therapy PT Evaluation Low Complexity Therapeutic Activities Therapeutic Exercise Manual Therapy Advance Directives Directive Yes / No Effective Date File Name No Information Encounters Encounter Description Practice Location Reason(s) For Visit Diagnoses Date Provider Providers Copied on Encounter [facility], [address], [place], [place], [id number], [place] tel:[phone] [place] No Information Jun- 0 Threlkeld Cherry. . Referring Provider: Meera Mejia, [address] [place] [address] [address], [place], [address]. tel:[phone] [facility] [address] [address], [place], [place], [id number], tel:[phone] [place] No Information Oct-2 0-202 0 Threlkeld Cherry. . Referring Provider: Meera Mejia, [address] [place] [address] [address], [place], [address]. tel:[phone] [facility] [address] [place] [address], [place], [place], [id number], [place] tel:[phone] [place] No Information Jun-1 3-202 0 Threlkeld Cherry. . Referring Provider: Meera Mejia, [address] [place] [address] [address], [place], [address]. tel:[phone] [facility] [address] [address], [place], [place], [id number], [place] tel:[phone] [place] No Information Oct-0 8-202 0 Makler Luke. . Referring Provider: Meera Mejia, [address] [place] [address] [address], [place], [address]. tel:[phone] [facility] [address] [address], [place], [place], [id number], [place] tel:[phone] [place] No Information Oct-0 1-202 0 Threlkeld Cherry. . Referring Provider: Meera Mejia, [address] [place] [address] [address], [place], [address]. tel:[phone] [facility] [address] [facility] [address], [place], [place], [id number], tel:[phone] [place] No Information May-2 9- 0 Threlkeld Cherry. . Referring Provider: Meera Mejia, [address] [place] [address] [address], [place], [address]. tel:[phone] [facility], [address] [facility] [address], [place], [place], [id number], tel:[phone] [place] No Information Sep-2 0 Denita Vivas. . Referring Provider: Meera Mejia, [address], [place], [address]. tel:[phone] [facility] [address] [facility] [address], [place], [place], [id number], [place] tel:[phone] [place] No Information Sep-2 0 Judy Carey. . Referring Provider: Meera Mejia, [address], [place], [address]. tel:[phone] Family History Family Member Type Diagnosis Age At Onset No Information Payers Payer name Insurance type Covered constitution party ID Ale serrano(s) [facility] [id number] Social History Type Description Quantity Date Captured [...]
--- OUTSIDE RECORDS SUMMARY | 2025-04-08 02:06 | XMS_ITS | Clinical Summary ---
Author Organization [facility] Address [address] [facility] [place] [address] Care Team Providers Care Clay Digger Name Role Phone Unavailable Primary Care Provider Unavailabl e Source Comments [facility] irisnote,non-owned Affiliates and Associated Physician Practices is amultiple site organization consisting of ambulatory clinics and hospital sitesin [place], [place], [place] and [place]. This disclosure is being madepursuant to the Care Everywhere program and may not contain all information available regarding this patient. 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
--- OUTSIDE RECORDS SUMMARY | 2025-04-08 02:06 | XMS_ITS | Clinical Summary ---
Author Organization [facility] Address [facility] [place] [address] Care Team Providers Care Software Applications Architect Name Role Phone Dirk Worthington Primary Care Provider + Allergies No known active allergies Medications Blood Glucose Monitoring Suppl (ONE TOUCH ULTRA 2) w/Device KitIndications: Type 2 diabetes mellitus without complication, without long-term current use of insulin ([facility]) Check blood sugar once daily in AM when fasting 1 kit 12/20/2023 Active atorvastatin (LIPITOR) 80 MG tabletIndicatio ns:Hyperlipidem ia associated with type 2 diabetes mellitus ([facility]) Take 1 tablet (80 mg total) by mouth nightly at bedtime. 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 No concerns) 01/11/2025 Results Follow-Up [facility] [address] [phone] Dirk Worthington P, DO ALBUMIN/CREATININE RATIO, RANDOM URINE, PROSTATE SPECIFIC ANTIGEN,SCREENING, LIPID PANEL, Additional followed-up results: 3 01/11/2025 Results Follow-Up [facility] [address] [phone] Dirk Worthington, DO HEMOGLOBIN, GLYCOSYLATED 01/11/2025 Travel from Last 3 Months Immunizations Immunization Administration Dates Next Due Hepatitis A (Havrix [...] Date Recorded Patient Health Questionnaire-2 Score 0 01/11/2025 Sex and Gender Information Value Date Recorded Sex Assigned at Male 01/11/2025 7:08 AM CDT Legal Sex Male 3:53 PM [facility] Gender Identity Male 10/05/2021 8:43 AM [facility] Sexual Orientation Straight 12/01/2021 11 :48 AM [facility]LLER PNEUMATIC Last Filed Vital Signs Vital Sign Reading Time Taken Comments Blood Pressure 116/68 01/11/2025 7:09 AM CDT Pulse 65 01/11/2025 7:09 AM CDT Temperature 36.8 C (98.3 F) 01/11/2025 7:09 AM CDT Respiratory Rate 16 01/11/2025 7:09 AM CDT Oxygen Saturation 98% 01/11/2025 7:09 AM CDT Inhaled Oxygen Concentration - - Weight 95.4 kg (210 lb 6.4 oz) 01/11/2025 7:09 A M CDT Height 170.2 cm (5' 7) 01/11/2025 7:09 AM CDT Body Mass Index 32.95 01/11/2025 7:09 AM CDT Plan of Treatment Upcoming Encounters Date Type Department Care Team (Late st Contact Info) Description 07/16/2025 7:00 AM CDT Office Visit [facility] Family & Internal Medicine - [address] [phone] Dirk Worthington DO [address] [place] [address] [id number] Health Maintenance Due Date Last Done Comments Diabetes: Retinopathy Eye Exam 1984 Annual Physical 10/06/2019 10/06/2018 COVID-19 Vaccine ( season) 2025 11/22/2020, 10/25/2020 Postponed from 05/24/2024 (Patient Refused) Hemoglobin A1C 07/13/2025 01/11/2025, 06/23, 03/23/2024, Additional history exists Kidney Health Evaluation 01/04/2026 01/04/2025 Lipid Panel 01/04/2026 01/04/2025, 10/24, 05/25/2022, Additional history exists Pneumococcal Vaccine: 50+ Years (1 of 2 - PCV) 01/11/2026 Postponed from 1985 (Patient/Guardian Refusal) Zoster Vaccines (1 of 2) 10/24/2026 Pos tponed from 2016 (Awaiting Documentation) Colorectal Cancer Screening FIT-DNA (3 Years) 08/03/2027 08/03/2024, 08/03/2024 DTaP, Tdap and Td Vaccines (3 - Td or Tdap) 10/06/2032 10/06/2022, 02/08/2016 Hepatitis B Vaccines Completed 01/19/2020, 08/21/2019, 07/23/2019 Hepatitis C Completed 05/25/2022 PHQ-2 (Physician Unga) Completed 01/11/2025 Meningococcal B Vaccine Aged Out No l onger eligible based on patient's age to complete this topic Meningococcal Vaccine Aged Out No katernya silas eligible based on patient's age to complete this topic RSV Immunizations Under 20 Months Aged Out No longer eligible based on patient's age to complete this topic Procedures Procedure Name Priority Date/Time Associated Diagnosis Comments PROCEDURE GENERIC (SCAN ORDER) 03/04/2025 IMAGE GENERIC 01/18/2025 COLLECT.CAPILLARY (FNGR,HEEL,EAR) Routine 01/11/2025 7:02 AM CDT Type 2 diabetes mellitus without complication, without long-term current use of insulin ([facility]) HEMOGLOBIN, GLYCOSYLATED Routine 01/11/2025 Type 2 diabetes mellitus without complication, without long-term current use of insulin ([facility]) LIPID PANEL Routine 01/04/2025 7:33 AM CDT Annual physical exam Screening for lipid disorders Screening for endocrine, metabolic and immunity disorder Screening for prostate cancer COLOGUARD ([employer]ACT SCIENCE) Routine 08/03/2024 9:36 AM ROLLER PNEUMATIC Screening for malignant neoplasm of colon HEPATITIS C ANTIBODY Routine 05/25/2022 1:51 PM CDT Screening for lipid disorders Screening for endocrine, metabolic and immunity disorder Screening for prostate cancer Need for hepatitis C screening test Annual physical exam from Last 3 Months or Most Recently Relevant to Health Maintenance Results * PROCEDURE GENERIC (SCAN ORDER) (03/04/2025) 03/04/2025 us [facility] Scanned SCANNING Final Resu lt * IMAGE GENERIC (01/18/2025) Anatomical Region Laterality Modality Other 01/18/2025 [facility] Scanned SCANNING Final Resu lt * HEMOGLOBIN, GLYCOSYLATED (01/11/2025) HGB A1C 6.4 % [facility] 01/11/2025 Dirk Worthington DO LABORATORY Final Re sult Performing Organization Address City/[facility]/ZIP Co de Phone Number [facility] [address] [place] [address], [place] * LIPID PANEL (01/04/2025 7:33 AM CDT) CHOLESTEROL 148 <200 MG/DL 01/04/2025 2:44 PM CDT [facility] TRIGLYCERIDES 86 <150 MG/DL 01/04/2025 2:44 PM CDT [facility] HDL 45 >40 MG/DL 01/04/2025 2:44 PM CDT [facility] LDL-C 86 <100 MG/DL 01/04/2025 2:44 PM CDT [facility] VLDL CALCULATION 17 5 - 28 MG/DL 01/04/2025 2:44 PM CDT [facility] CHOL/HDL RATIO 3.3 0.0 - 4.0 01/04/2025 2:44 PM CDT [facility] LDL/HDL 1.9 0.41 - 2.13 01/04/2025 2:44 PM CDT [facility] NON HDL CHOLESTEROL 103 <140 MG/DL 01/04/2025 2:44 PM CDT [facility] 01/04/2025 7:33 AM CDT Dirk Worthington DO LABORATORY Final Re sult [facility] [address] [place] [address], [place] [phone] * COLOGUARD ([employer] SCIENCE) (08/03/2024 9:36 AM ROLLER PNEUMATIC) COLOGUARD RESULT Negative Negative EX [employer] (CLIA #:[id number]) Comment: NEGATIVE TEST RESULT. A negative Cologuard [...] Chaparro et al, N Engl J Med 2014;370(14):9889-6873) The normal value (reference range) for this assay is negative. COLOGUARD RE-SCREENING RECOMMENDATION: Periodic colorectal cancer screening is an important part of preventive healthcare for asymptomatic individuals at average risk for colorectal cancer. Following a negative Cologuard result, the [place] [employer] Society and U.S. Multi-Society Task Force screening guidelines recommend a Cologuard re-screening interval of 3 years. References: [place] [employer] Guideline for Colorectal Cancer Screening: https://www.cancer.org/cancer/ydmgu-uzpygw-vnmwqz/dntegbrgb-qyklatlug-fcdqsbn/ac s-rec ommendations.html.; Romel MOREIRA, Ronny FRAZIER, Neil MillerK, Colorectal Cancer Screening: Recommendations for Physicians and Patients from the U.S. Multi-Society Task Force on Colorectal Cancer Screening , Am J Gastroenterology 2017; 112:3460-5659. TEST DESCRIPTION: Composite algorithmic analysis of stool [...] Roberto. et al, N Engl J Med 2014;370(14):6118-6733.) Cologuard may produce a false negative or false positive result (no colorectal cancer or precancerous polyp present at colonoscopy follow up). A negative Cologuard test result does not guarantee the absence of CRC or advanced adenoma (pre-cancer). The current Cologuard screening interval is every 3 years. ([place] [employer] Society and U.S. Multi-Society Task Force). Cologuard performance data in a 10,000 patient pivotal study using colonoscopy as the reference method can be accessed at the following location: www.Fluency/results. Additional description of the Cologuard test process, warnings and precautions can be found at www.cologuard.com. STOOL STOOL SPECIMEN / Unknown 08/03/2024 9:36 AM ROLLER PNEUMATIC 08/04/2024 9:52 AM ROLLER PNEUMATIC us Dirk Worthington DO BODY FLUIDS AND STOOLS O RDERABLES Final Result [facility]) [address] [place] [place] [address], [employer] (CLIA #:[id number]) [address] [place] [place] [address] * HEPATITIS C AB ([facility] ONLY) (05/25/2022 1:51 PM CDT) HEPATITIS C AB NON-REACTI VE NON-REACT SANJEEV 05/29/2022 11:27 AM CDT [facility] Comment: ANTIBODIES TO HCV NOT DETECTED. DOES NOT EXCLUDE THE POSSIBILITY OF EXPOSURE TO HCV. 05/25/2022 1:51 PM CDT Dirk Worthington DO LABORATORY Final Re sult [facility] [address] [place] [address], [id number] from Last 3 Months or Most Recently Relevant to Health Maintenance Insurance [facility] Care Teams Software Applications Architect Relationship Specialty Start Date End Date Dirk Worthington DO [address] [place] [address] PCP - General FAMILY PRACTICE 09/25/18
[2025-04-08] MEDS: ACETAMINOPHEN 500 MG TABLET 1000 MG PO (10:35)
[2025-04-08] MEDS: LACTATED RINGERS 1,000 ML 30 ML IV CONT (10:55)
--- NOTE | 2025-04-08 10:59 | P.PNAN_ITS ---
Anes - Initial Pre Proc Eval Procedure: Operation Date: 04/08/25 12:00 Proposed Procedures p Left Carpal Tunnel Release - Hernesto Mario MD Date/Time: 04/08/25 10:59 Surgeon: Hernesto Mario MD Pre Op Diagnosis: Left Carpal Tunnel Syndrome Patient Data Age: 59 Gender: M Height: 1.7 m Weight: 95 kg Allergies Allergy/AdvReac Type Severity Reaction Status Date / Time No Known Allergies Allergy Verified 04/01/25 13:48 Home Medications ?Medication ?Instructions ?Recorded ?Confirmed ?Type atorvastatin 80 mg tablet 80 mg PO QPM 02/25/25 04/08/25 History Patient hx anesthesia problems: none Family hx anesthesia problems: none Results Review: All pre-operative results and documents have been reviewed as part of the pre- operative evaluation. [facility] Past Medical History Medical History (Updated 04/08/25 @ 11:00 by Joshua Worthington DO) Hyperlipidemia Carpal tunnel syndrome of left wrist Carpal tunnel syndrome of right wrist Numbness and tingling of upper extremity Degenerative joint disease of knee Left knee pain Surgical History Surgical History H/O eye surgery Family History Family History Unknown Heart disease Diabetes mellitus Hyperlipidemia Social History Social History Smoking status: Never smoker Alcohol intake: current Drinks per week: 1 Substance use: never Living arrangements: with family Occupation/Education: occupation Additional occupation/education comments: [employer] Spiritual care concerns: No Anes - Eval Final PreProcedure Day of Procedure 04/08/25 10:59 Patient weight: obese Heart: regular rate and rhythm Lungs: clear to auscultation Airway: Mallampati scale class III Neurological: alert and oriented Last oral intake: >/= 8 hours ASA classification: II Emergent: no Anesthetic plan: proceed Anesthesia type and monitoring: general LMA and standard monitoring Results Review: All pre-operative results and documents have been reviewed as part of the pre- operative evaluation. Informed Consent: The patient's anesthetic plan and its attendant risks and benefits were discussed with the patient/family/POA. Questions were solicited and answers provided to the satisfaction of the patient/family/POA.
--- NOTE | 2025-04-08 11:03 | WPDHPUPDATE1 ---
History and Physical Update Update Date/Time: 04/08/25 11:03 History and Physical has been reviewed, including an updated exam of the patient. There are NO changes in the patient's condition. Risks, benefits, and alternatives have been discussed and questions answered. Patient agrees to proceed with procedure.
[2025-04-08] MEDS: KETOROLAC 15 MG/ML VIAL (*BKC) IV PUSH (11:10)
[2025-04-08] MEDS: ceFAZolin 2 GM in SODIUM CHLORIDE 0.9% IV 50 ML 100 ML IVPB (11:57)
[2025-04-08] MEDS: BUPIVACAINE/EPINEPHRINE 0.5% 30 ML VIAL 5 ML INFILTRATE (11:59)
[2025-04-08] MEDS: LIDOCAINE 2% LOCAL INJ 20 ML VIAL 5 ML INFILTRATE (11:59)
--- NOTE | 2025-04-08 12:38 | P.OP_ITS ---
Procedure Note - Detailed Date of Procedure 04/08/25 Pre-op Diagnosis Left Carpal Tunnel Syndrome Post-op Diagnosis Same Procedure Performed Left carpal tunnel release. 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 Conservative treatment with bracing/ splinting, activity modifications, medication, ergonomics, injections has failed. Symptoms are daily and affect ability to use hand. The patient desires operative treatment. Description of Procedure After informed consent was given, the operative extremity was marked in the preoperative holding area. Intravenous antibiotics were given. The patient was taken to the operating room and underwent general anesthesia by the anesthesia team. A time-out was performed confirming patient, procedure, and operative site. Local infiltrate at the carpal tunnel was done with 0.5% marcaine. Prepping and draping was done using chloraprep skin solution with usual surgical sterile technique. Anatomic landmarks marked on skin. Hand was exsanguinated and arm tourniquet inflated to 225mmHg. Left hand Incision was made with #15 blade knife in skin crease on volar palm. Hemostasis was achieved with electrocautery. Careful dissection was carried down to the transverse carpal ligament. Retractors were placed. Ligament overlying median nerve was incised in line with skin incision using quileute blade. Proximal and distal release was done with metzenbaum scissors under direct visualization. Mosquito clamp was placed deep to ligament to protect nerve during release. The nerve was inspected and noted to be intact with mild flattening. Tendons had good excursion. The tourniquet was then released and pressure held. Bleeding points were coagulated with bipolar cautery. The wound was thoroughly irrigated with antibiotic solution. The skin was closed with 4-0 nylon interrupted suture. A sterile dressing was applied. Good capillary refill in the fingers and thumb was noted. The patient was transported to the recovery room in stable condition. All sponge, needle, instrument counts were correct at the end of the case. Estimated Blood Loss 2 Tourniquet Time Total Tourniquet Time: 5 Drains No Packing No Pathology None sent Complications None Condition Stable Disposition PACU [facility] Billing Surgery - Charge Forward: Surgery Billing ([id number])
== END 2025-04-08 14:12 | disposition home or self-care (01) ==
PROVIDERS: PCP Student in an Organized Health Care Education/Training Program; Visit Provider Orthopaedic Surgery
PROC: (CPT 64721; principal; 2025-04-08 12:00)
DX: G56.02 Carpal tunnel syndrome, left upper limb (principal)
CPT/HCPCS: 64721; J0690; A9270; J1885; J2003; J2250; J2704; J3010; J7120